=== PATIENT | male | born 1940 | race Caucasian/White ===

== ENCOUNTER 2024-04-24 08:57 | Outpatient (CLI) | payer MEDICARE, BC, SELFPAY ==
--- NOTE | ~2024-04-24 | PE_ITS ---
EXAMINATION: PET skull to mid thigh DATE: 04/24/2024 12:10 INDICATION: Solitary nodule of lung. TECHNIQUE: Blood glucose level was 97 mg/dL. 9.420 mCi of 18-fluorodeoxyglucose (18-FDG) was administ ered i.v. Low dose computed tomography (CT) images were acquired from the base of the brain to the pr oximal thighs for attenuation correction and anatomic localization. Automated exposure control was em ployed. Dose-length product (DLP) was 622 mGy-cm. Positron emission tomography (PET) images were acqu ired in the same distribution. COMPARISON: None FINDINGS: Head/neck: There are likely changes of right ocular lens replacement surgery. There is mild mucosal t hickening in the paranasal sinuses. There are no pathologically enlarged lymph nodes. Chest: There is moderate emphysema. There is a 3 mm nodule in right upper lobe. Calcified bilateral l leela nodules are consistent with old granulomatous disease. There is a 5 mm nodule in left upper lobe. There is a 4 mm nodule in left upper lobe. No pleural effusion. The heart size is normal. There are coronary artery calcifications. There are calcifications of the aortic valve. No pericardial effusion . There is a small sliding hiatal hernia. Abdomen/pelvis/proximal thighs: The liver, gallbladder, spleen, pancreas, adrenal glands, and right k idney are normal. There is a 2.1 cm cyst in left kidney. There is calcified atherosclerosis of the ao rta and many of the other arteries. 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 The pros shah is mildly enlarged. There is diverticulosis of the colon without evidence of diverticulitis. The appendix is normal. There are no dilated loops of bowel. There are no pathologically enlarged lymph nodes. There is no free intraperitoneal fluid. There is no osseous malignancy. IMPRESSION: 1. Small pulmonary nodules without increased activity, likely benign. Reviewed, dictated and finalized at location A.
[2024-04-24 09:40] LABS: Glucose Point of Care 97 mg/dl (65-105)
== END 2024-04-24 08:58 | disposition home or self-care (01) ==
LOC: ANHIMG 09:08
PROVIDERS: PCP Internal Medicine; Visit Provider Internal Medicine Pulmonary Disease
DX: R91.1 Solitary pulmonary nodule (principal); R91.8 Other nonspecific abnormal finding of lung field
CPT/HCPCS: 78815; A9552

== ENCOUNTER 2024-12-30 09:28 | Outpatient (CLI) | payer MEDICARE, BC, SELFPAY ==
--- NOTE | ~2024-12-30 | XR_ITS ---
XR abdomen/kub 1V Ordering provider: Jayant Patrick MD History: . GROSS HEMATURIA . Comparison: None. FINDINGS: BOWEL: Nonobstructive bowel gas pattern. ORGANOMEGALY: None. SIGNIFICANT PATHOLOGIC CALCIFICATIONS: None. The calcific shadow seen in the left side of the pelvis is most likely inflammatory. OTHER: No free air is seen under the diaphragm. Atherosclerotic changes. Degenerative spine. Bilateral hip osteoarthritic changes. IMPRESSION: NO ACUTE ABDOMINAL FINDINGS. Calcific shadow seen in the left side of the pelvis is most likely phlebolith. If still clinically grace spicious noncontrast CT is advised. Reviewed, dictated and finalized at location A. IMPRESSION: NO ACUTE ABDOMINAL FINDINGS. Calcific shadow seen in the left side of the pelvis is most likely phlebolith. If still clinically suspicious noncontrast CT is advised.
--- NOTE | ~2024-12-30 | CT_ITS ---
CT of the Abdomen and Pelvis: Indication: Hematuria Technique: 2.5 mm axial scans were obtained through the abdomen and pelvis prior to and following in travenous administration of 130 cc of Omnipaque 350. Dose reduction technique was used on this scan b y utilizing automated exposure control and iterative reconstruction technique. The dose-length produc t (DLP) was 527.89 mGy-cm. Findings: Scans through the lung bases are unremarkable. The liver, spleen, pancreas, gallbladder, adrenals and kidneys are within normal limits. There are ex tensive atherosclerotic calcifications of the aorta and iliac vessels, with mild aneurysmal dilatatio n of 3.1 cm of the infrarenal abdominal aorta. No lymphadenopathy. No bowel obstruction or bowel wall thickening. There is no evidence to suggest acute appendicitis. Images through the pelvis were performed. 3.6 x 2.9 cm probable enhancing soft tissue mass present in the posterior bladder just right of midline, suspicious for bladder carcinoma until proven otherwise . Prostate gland mildly enlarged. No ascites. Impression: 3.6 x 2.9 cm bladder mass, as above, highly suspicious for bladder carcinoma until proven otherwise. Cystoscopy recommended for further evaluation/tissue sampling. Extensive atherosclerotic disease of the aorta and iliac vessels, as noted above. Probable areas of h igh-grade stenosis of the bilateral iliac vessels. Reviewed, dictated and finalized at location M. Impression: 3.6 x 2.9 cm bladder mass, as above, highly suspicious for bladder carcinoma un til proven otherwise. Cystoscopy recommended for further evaluation/tissue samp ling. Extensive atherosclerotic disease of the aorta and iliac vessels, as noted abov e. Probable areas of high-grade stenosis of the bilateral iliac vessels.
--- OUTSIDE RECORDS SUMMARY | 2024-12-30 09:41 | XMS_ITS | Clinical Summary ---
Author Organization [facility] Address [address] [place] [address] Care Team Providers Care Brick Paving Checker Name Role Phone Michael Hanna MD Primary Care Provider [phone] Source Comments [facility],non-owned Affiliates and Associated Physician Practices is amultiple site organization consisting of ambulatory clinics and hospital sitesin [place], [place], [place] and [place]. This disclosure is being madepursuant to the Care Everywhere program and may not contain all information available regarding this patient. Last updated 18.[facility] Allergies No known active allergies Immunizations Immunization Administration Dates Next Due INFLUENZA VACCINE, HIGH-DOSE , QUADR. (FLUZONE HIGH-DOSE QUADRIVALENT; 65Y+), 0.7 ML (HD-IIV4) 05/22/2017 Social History Tobacco Use Types Packs/Day Years Used Date Smoking Tobacco: Never Assessed Sex and Gender Information Value Date Recorded Sex Assigned at Not on file Legal Sex Male 5:28 PM CDT Gender Identity Not on file Sexual Orientation Not on file Plan of Treatment Health Maintenance Due Date Last Done Comments DTAP/TDAP/TD VACCINES (1 - Tdap) 1958 PNEUMOCOCCAL VACCINE 50+ (1 of 1 - PCV) 1989 ZOSTER VACCINE (1 of 2) 1989 Respiratory Syncytial Virus (RSV) Vaccine Pt: or over 60 yrs (1 - 1-dose 75+ series) 2014 COVID-19 VACCINE ( - 2023-2 5 season) 2024 DEPRESSION SCREENING 08/20/2024 INFLUENZA VACCINE (Season Ended) 2025 05/22/20 17 HEPATITIS B VACCINE Aged Out No longe r eligible based on patient's age to complete this topic HIB VACCINE Aged Out No longer eligi ble based on patient's age to complete this topic HPV VACCINE Aged Out No longer eligi ble based on patient's age to complete this topic MENINGOCOCCAL (Group B) VACC INE SHARED DECISION-MAKING Aged Out No longer eligibl e based on patient's age to complete this topic MENINGOCOCCAL GROUPS A/C/Y/W VACCINE Aged Out No longer eligible b ased on patient's age to complete this topic Insurance MEDICARE [facility] MEDICARE Care Teams Brick Paving Checker Relationship Specialty Start Date End Date Michael Hanna MD [address] [place] [address] [address] [place] [address] PCP - General Internal Medicine 05/22/17
--- OUTSIDE RECORDS SUMMARY | 2024-12-30 09:41 | XMS_ITS | CONTINUITY OF CARE DOCUMENT ---
Author Name amna woo Address Unknown Organization [facility] Address [address] [place] [address] Phone [phone] Care Team Providers Care Financial Aid Director Name Role Phone Justin ELIZABETH, Keyona Unavailable PETER ELIZABETH, AMAYA Unavailable PETER ELIZABETH, AMAYA Unavailable [phone] PROBLEMS Condition Status Date Provider Notes Syncope active Sylwia Ibarra Hyperlipidemia active Sylwia Ibarra Hypertension active Sylwia Ibarra Chronic obstructive pulmonary disease, severe active 2 Sylwia Ibarra Cardiac murmur active Sylwia Ibarra INSURANCE PROVIDERS Payer name Policy type / Coverage type Aleksandra red libertarian ID [facility] [id number] 1 [place] Medicare [id number] TREATMENT PLAN Date Name Complete Echo
[2024-12-30 10:38] LABS: Estimated Glomerular Filt Rate 52
== END 2024-12-30 09:29 | disposition home or self-care (01) ==
PROVIDERS: PCP Internal Medicine; Visit Provider Urology
DX: N32.9 Bladder disorder, unspecified (principal); I70.0 Atherosclerosis of aorta
CPT/HCPCS: 74018; 74178; Q9967

== ENCOUNTER 2025-01-02 08:59 | Emergency (ER) | payer MEDICARE, BC, SELFPAY ==
--- NOTE | ~2025-01-02 | CT_ITS ---
EXAMINATION: CT abdomen pelvis w con DATE: 01/02/2025 11:20 INDICATION: Abdominal pain TECHNIQUE: Computed tomography (CT) of the abdomen and pelvis was performed with 100 mL Omnipaque-350 intravenous contrast. Automated exposure control and iterative reconstruction technique were employe d. The dose-length product was 218.46 mGy-cm. COMPARISON: 12/30/2024 FINDINGS: Mild emphysema the lower lungs. Heart size is normal. No pericardial or pleural effusion. Small slidi ng-type hiatal hernia. Liver, gallbladder, spleen and bilateral adrenal glands are normal. Couple sma ll dystrophic calcifications at the body the pancreas, likely sequela of chronic pancreatitis. Bilate ral renal cysts the largest on the left measuring 2.1 cm. Bladder is nearly decompressed with heterog eneous attenuation material within the bladder lumen along side a Mahoney catheter bulb. Prostatomegaly measuring 5.2 x 4.2 cm. There is moderate colonic diverticulosis with a descending and sigmoid colon predominance and without adjacent inflammatory change to suggest diverticulitis. Small bowel and ap pendix are normal. No free intraperitoneal gas or fluid. No pathologically enlarged abdominal or pelv ic lymphadenopathy. There is calcified atherosclerosis of the aorta and many of the other arteries. T here is moderate 50-70% stenosis at the origin of the left stenosis at the origin of the left renal a rtery. Mild stenosis at the celiac axis origin, at the proximal right renal artery and along the bila teral common, external and right internal iliac arteries. Severe stenosis at the origin of the left i nternal iliac artery. Mild to moderate lumbar spondylosis. IMPRESSION: 1. Heterogeneous attenuation material within the bladder lumen along side the Mahoney catheter bulb whi ch could represent residual clot related to reported recent bladder surgery. 2. Small sliding-type hiatal hernia. 3. Mild emphysema. 4. Prostatomegaly. 5. Diverticulosis. 6. 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 Reviewed, dictated and finalized at location A. IMPRESSION: 1. Heterogeneous attenuation material within the bladder lumen along side the F oley catheter bulb which could represent residual clot related to reported rece nt bladder surgery. 2. Small sliding-type hiatal hernia. 3. Mild emphysema. 4. Prostatomegaly. 5. Diverticulosis. 6. Atherosclerotic disease with moderate stenosis at the origin of the left jonh al artery and severe stenosis at the left internal iliac artery.
[2025-01-02 09:18] VITALS: BP 162/65; PULSE 82; RESP 16; TEMP 36.6; O2SAT 97
--- NOTE | 2025-01-02 09:28 | ED_ITS ---
HPI - General Adult General Chief complaint: Urogenital-Male Stated complaint: uro-male Time Seen by Provider: 01/02/25 09:10 History of Present Illness HPI narrative: Sathya Perez is a an 84-year-old male with past medical history bladder mass, hypertension, COPD and hypothyroidism. He presents today with complaints of not being able to urinate since last night. He states that 3 days ago he had a procedure done to look at his bladder mass and he states that he has had extreme pain with urinating passing blood clots since the procedure he went to an outside hospital yesterday had labs done and was discharged home and this morning he felt like he could not urinate anymore. Mahoney catheter was placed on arrival and 800 mils dark urine immediately came out patient reports of having some relief of his urgency abdominal discomfort with the catheter placement. Denies any fevers or chills. Related Data Allergies Allergy/AdvReac Type Severity Reaction Status Date / Time No Known Allergies Allergy Unverified 02/01/18 08:40 Review of Systems 2 Review of Systems: All systems reviewed & are unremarkable except as noted in HPI and below Exam 2 Narrative: GENERAL: Well-appearing, well-nourished, and in no acute distress. HEAD: Normocephalic, atraumatic. EYES: PERRLA and EOMI. ENT: Nares clear, no rhinorrhea or epistaxis. Mucous membranes moist. Oropharynx without tonsillar hypertrophy exudate or other lesions. NECK: Supple. No adenopathy or masses. No carotid bruits or JVD CHEST: Clear to auscultation. No respiratory distress. No wheezes rales or rhonchi HEART: Regular rate and rhythm. No murmur heard. Normal peripheral pulses. ABDOMEN: Soft, nontender, nondistended, normal active bowel sounds. EXTREMITIES: Normal range of motion. No edema. SKIN: Warm, dry, no rash. NEURO: No focal deficits. Alert and oriented x3. PSYCH: Normal mood and affect. Course Vital Signs Vital signs: Vital Signs Temperature 36.6 C 01/02/25 09:18 Pulse Rate 82 01/02/25 09:18 Respiratory Rate 16 01/02/25 09:18 Blood Pressure 162/65 H 01/02/25 09:18 Pulse Oximetry 97 01/02/25 09:18 Oxygen Delivery Room Air 01/02/25 09:18 Temperature 36.6 C 01/02/25 12:00 Pulse Rate 115 H 01/02/25 12:00 Respiratory Rate 20 01/02/25 12:00 Blood Pressure 132/88 01/02/25 12:00 Pulse Oximetry 100 01/02/25 12:00 Oxygen Delivery Room Air 01/02/25 09:18 Medical Decision Making MDM Narrative Medical decision making narrative: 84-year-old male who presents with reported urinary retention unable to urinate with some discomfort. He relates this to procedure that he had done 3 days ago he states he has had pain in his penis and with urination ever since then states he was passing blood and blood clots. Your concern for urinary obstruction, urinary tract infection, ureterolithiasis, active bleeding Plan to check labs and recheck to urology CBC-no leukocytosis hemodynamically stable hemoglobin 13.2 hematocrit 41.8 CMP-GFR 57 otherwise unremarkable UA-red, turbid 2+ protein trace ketones 3+ blood RBCs greater than 100 CT1. Heterogeneous attenuation material within the bladder lumen along side the Mahoney catheter bulb which could represent residual clot related to reported recent bladder surgery. consulted with Urology Dr. Patrick who recommends d/c pt with Mahoney and start Bactrim empirically and to have the pt call on Sunday for a follow up appt. Patient updated on results and information from Dr. Patrick is and updated on discharge plan he was agreeable with this plan will be approved righted with a leg bag and instructions to moved to a bedside drainage bag at bedtime Medical Records Medical records reviewed: Yes I reviewed the external patient's medical records. Vital Signs Vital Signs: Vital Signs Temperature 36.6 C 01/02/25 09:18 Pulse Rate 82 01/02/25 09:18 Respiratory Rate 16 01/02/25 09:18 Blood Pressure 162/65 H 01/02/25 09:18 Pulse Oximetry 97 01/02/25 09:18 Oxygen Delivery Room Air 01/02/25 09:18 Temperature 36.6 C 01/02/25 12:00 Pulse Rate 115 H 01/02/25 12:00 Respiratory Rate 20 01/02/25 12:00 Blood Pressure 132/88 01/02/25 12:00 Pulse Oximetry 100 01/02/25 12:00 Oxygen Delivery Room Air 01/02/25 09:18 vitals reviewed by me Lab Data Lab results reviewed: Yes I reviewed the patient's lab results. 01/02/25 10:04 01/02/25 10:04 Labs: Lab Results 01/02/25 Range/Units 10:04 WBC 8.2 (4.5-10.0) K/mm3 RBC 4.16 L (4.6-6.20) M/mm3 Hgb 13.2 L (14.0-18.0) g/dL Hct 41.8 L (42.0-52.0) % MCV 100.5 H (80-100) fl MCH 31.7 (26-34) pg MCHC 31.6 L (32-36) g/dl RDW 13.2 (11.5-14.5) % Plt Count 170 (150-375) k/mm3 MPV 10.7 H (7.4-10.4) fl Immature Gran % (Auto) 0.4 (0-0.5) % Neut % (Auto) 83.7 H (45.5-73.1) % Lymph % (Auto) 8.8 L (18.3-44.2) % [place] % (Auto) 5.3 (2.6-8.5) % Eos % (Auto) 1.2 (0-4.4) % Baso % (Auto) 0.6 (0.2-1.2) % Lymph # (Auto) 0.72 L (0.9-3.2) K/mm3 [place] # (Auto) 0.4 (0.1-0.6) K/mm3 Eos # (Auto) 0.1 (0-0.3) K/mm3 Baso # (Auto) 0.1 (0.0-0.1) K/mm3 Abs Immat Gran (auto) 0.03 (0.00-0.031) K/mm3 Absolute Neuts (auto) 6.8 H (1.3-6.7) K/mm3 Absolute Nucleated RBC 0.000 (0.0-0.012) K/mm3 Nucleated RBC % 0.0 (0.0-0.2) % Sodium 139 (137-145) mmol/L Potassium 4.5 (3.4-5.0) mmol/L Chloride 104 (98-107) mmol/L Carbon Dioxide 29 (22-30) mmol/L Anion Gap 6 (4-12) mmol/L BUN 19 (9-20) mg/dL Creatinine 1.21 (0.7-1.3) mg/dL Estim Creat Clear Calc 37 ml/min Estimated GFR 57 L (59 - ) Glucose 96 (65-110) mg/dL Calcium 9.0 (8.4-10.2) mg/dL Total Bilirubin 1.0 (0.2-1.3) mg/dL AST 34 (17-59) U/L ALT 18 (6-50) U/L Alkaline Phosphatase 107 (38-126) U/L Total Protein 7.0 (6.3-8.2) g/dL Albumin 4.0 (3.5-5.1) g/dL Urine Color Red H (Yellow) Urine Appearance Turbid H (Clear) Urine pH 6.5 (5.0-9.0) Ur Specific Freeman 1.015 (1.001-1.035) Urine Protein 2+ H (Negative) mg/dL Urine Glucose (UA) Negative (Negative) mg/dL Urine Ketones Trace H (Negative) mg/dL Ur Blood (Man) 3+ H (Negative) Urine Nitrate Negative (Negative) Urine Bilirubin Negative (Negative) Urine Urobilinogen 0.2 (<2.0) mg/dL Leukocyte Esterase Rfl Negative (Negative) LEXIE/UL Urine RBC >100 H (0-2) /hpf Urine WBC 0-5 (0-3) /hpf Ur Squamous Epith Cells None seen (Few) /hpf Urine Bacteria None seen /hpf Imaging Data Radiologist's impression: Impressions Abdomen/Pelvis CT 01/02/25 11:36 IMPRESSION: 1. Heterogeneous attenuation material within the bladder lumen along side the Mahoney catheter bulb which could represent residual clot related to reported recent bladder surgery. 2. Small sliding-type hiatal hernia. 3. Mild emphysema. 4. Prostatomegaly. 5. Diverticulosis. 6. 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 Discharge Plan Discharge Clinical Impression: Acute urinary retention Hematuria Qualifiers: Hematuria type: gross Qualified Code(s): R31.0 - Gross hematuria Patient Disposition: Home Condition: Stable Instructions: Antibiotic Form Additional Instructions: Continue to take the Bactrim twice daily Call Dr. Patrick Sunday for follow up Continue to keep the Mahoney catheter in until you follow up with Urology. Follow up with your PCP in 1 week Monitor your urine output, if you stop making urine or develop pressure abdominal pain then return to the ER Patient Language: Macedonian Prescriptions: New sulfamethoxazole-trimethoprim [Bactrim DS] 800-160 mg tablet 1 tablet PO Q12H Qty: 10 0RF Follow-up/Referrals: Hanna,Michael Mendes MD [Primary Care Provider] - Jayant Patrick MD [Physician] - 3 Days Time of Disposition: 12:38
--- OUTSIDE RECORDS SUMMARY | 2025-01-02 09:28 | XMS_ITS | Clinical Summary ---
Author Organization [facility] Address [address] [place] [address] Care Team Providers Care Vice President Of News Name Role Phone Michael Hanna MD Primary Care Provider [phone] Source Comments [facility],non-owned Affiliates and Associated Physician Practices is amultiple site organization consisting of ambulatory clinics and hospital sitesin [place], [place], [place] and [place]. This disclosure is being madepursuant to the Care Everywhere program and may not contain all information available regarding this patient. Last updated 18.[facility] Allergies No known active allergies Immunizations Immunization [...] age to complete this topic Insurance MEDICARE [facility] MEDICARE Care Teams Vice President Of News Relationship Specialty Start Date End Date Michael Hanna MD [address] [place] [address] [address] [place] [address] PCP - General Internal Medicine 05/22/17
--- OUTSIDE RECORDS SUMMARY | 2025-01-02 09:28 | XMS_ITS | CONTINUITY OF CARE DOCUMENT ---
Author Name amna woo Address Unknown Organization [facility] Address [address] [place] [address] Phone [phone] Care Team Providers Care Disaster Recovery Coordinator Name Role Phone Justin ELIZABETH, Keyona Unavailable [phone] PETER ELIZABETH, AMAYA Unavailable PETER ELIZABETH, AMAYA Unavailable [phone] PROBLEMS Condition Status Date Provider Notes Syncope active Sylwia Ibarra Hyperlipidemia active Sylwia Ibrara Hypertension active Sylwia Ibarra Chronic obstructive pulmonary disease, severe active 2 Sylwia Ibarra Cardiac murmur active Sylwia Ibarra INSURANCE PROVIDERS Payer name Policy type / Coverage type Aleksandra red libertarian ID [facility] [id number] 1 [place] MED[place] Medicare [id number] TREATMENT PLAN Date Name Complete Echo
--- OUTSIDE RECORDS SUMMARY | 2025-01-02 09:28 | XMS_ITS | Continuity of Care Document ---
Author Organization [facility] Address [address] [place] [address] Phone Care Team Providers Care Machine Shop Worker Name Role Phone Duke Tipton Unavailable Unavailable Procedures Procedure Date Office/outpatient Visit, [facility] Advance Directives Directive Yes / No Effective Date File Name No Information Encounters Encounter Description Practice Location Reason(s) For Visit Diagnoses Date Provider Providers Copied on Encounter Office/outpat ient Visit, [facility], [address], [place], [place], [id number], [place] tel:[phone] [facility] No Information [address] , [address], [place], [address], [place]. tel:[phone] Family History Family Member Type Diagnosis Age At Onset No Information Payers Payer name Insurance type Covered green party ID Authoriza tion(s) No Information Social History Type Description Quantity Date Captured Comments Sex Male Smoking Status No Information Chief Complaint And Reason For Visit No Information Reason For Referral Reason For Referral No Information History Of Present Illness Encounter Date Complaint History Of Prese nt Illness No Information Functional Status Date Functional Assessmen t No Information Instructions Date Instruction Additional Infor mation No Information Assessments Type Assessment Date No Information Patient Care Teams Name Effective Dates (start - stop) Status Members No Information
[2025-01-02 10:23] LABS: Basophils Absolute Auto 0.1 K/mm3 (0.0-0.1); Basophils Percent Auto 0.6 % (0.2-1.2); Eosinophils Absolute Auto 0.1 K/mm3 (0-0.3); Eosinophils Percent Auto 1.2 % (0-4.4); Hematocrit 41.8 % (42.0-52.0); Hemoglobin 13.2 g/dL (14.0-18.0); Immature Granulocyte Absolute 0.03 K/mm3 (0.00-0.031); Immature Granulocyte Percent A 0.4 % (0-0.5); Lymphocytes Absolute Auto 0.72 K/mm3 (0.9-3.2); Lymphocytes Percent Auto 8.8 % (18.3-44.2); Mean Corpuscular HGB Conc 31.6 g/dl (32-36); Mean Corpuscular Hemoglobin 31.7 pg (26-34); Mean Corpuscular Volume 100.5 fl (80-100); Mean Platelet Volume 10.7 fl (7.4-10.4); Monocytes Absolute Auto 0.4 K/mm3 (0.1-0.6); Monocytes Percent Auto 5.3 % (2.6-8.5); Neutrophils Absolute Auto 6.8 K/mm3 (1.3-6.7); Neutrophils Percent Auto 83.7 % (45.5-73.1); Platelet Count Result 170 k/mm3 (150-375); Red Blood Count 4.16 M/mm3 (4.6-6.20); Red Cell Distribution Width 13.2 % (11.5-14.5); White Blood Count 8.2 K/mm3 (4.5-10.0)
[2025-01-02 10:32] LABS: Appearance Urine Turbid (Clear)
[2025-01-02 10:33] LABS: Color Urine Red (Yellow); Glucose Urine UA Negative (Negative); Ketones Urine Trace mg/dL (Negative); Protein Urine 2+ mg/dL (Negative); Specific Grav Ur 1.015 (1.001-1.035); pH Urine 6.5 (5.0-9.0)
[2025-01-02 10:34] LABS: Add Urine Microscopic? YES; Bilirubin Urine Negative (Negative); Blood Urine 3+ (Negative); Leukocyte Esterase Ur Negative LEU/UL (Negative); Nitrate Urine Negative (Negative); Urobilinogen Urine 0.2 mg/dL (<2.0)
[2025-01-02 10:35] LABS: Bacteria Urine None seen /hpf; RBC Urine >100 /hpf (0-2); Squamous Epithelial Cell Urine None Seen /hpf (Few); WBC Urine 0-5 /hpf (0-3)
[2025-01-02 11:01] VITALS: BP 133/98; PULSE 128; RESP 22; TEMP 36.6; O2SAT 100
[2025-01-02 11:02] LABS: Alanine Aminotransferase 18 U/L (6-50); Alkaline Phosphatase 107 U/L (38-126); Anion Gap 6 mmol/L (4-12); Aspartate Amino Transferase 34 U/L (17-59); Blood Urea Nitrogen 19 mg/dL (9-20); Carbon Dioxide 29 mmol/L (22-30); Chloride 104 mmol/L (98-107); Estimated CRCL calculation 37 ml/min; Estimated Glomerular Filt Rate 57; Glucose 96 mg/dL (65-110); Potassium 4.5 mmol/L (3.4-5.0); Sodium 139 mmol/L (137-145)
[2025-01-02 11:31] VITALS: PULSE 112; RESP 22
[2025-01-02] MEDS: IPRATROPIUM 0.5 MG/ALBUTEROL SULFATE 2.5 MG AMPUL.NEB 3 ML INHALATION (11:31)
[2025-01-02 11:38] VITALS: PULSE 113; RESP 20
[2025-01-02 12:00] VITALS: BP 132/88; PULSE 115; RESP 20; TEMP 36.6; O2SAT 100
[2025-01-02 13:00] VITALS: BP 138/80; PULSE 110; RESP 26; TEMP 36.6; O2SAT 95
[2025-01-02] MEDS: SULFAMETHOXAZOLE/TRIMETHOPRIM 800/160 MG DS TABLET 1 TAB PO (13:03)
--- NOTE | 2025-01-02 13:53 | PC.NURSE ---
Mahoney cath irrigated after leg beg applied because no urine drained into bag. 120ml sterile water inserted and would not aspirate out. Balloon deflate and advance and cath began to flow again
== END 2025-01-02 13:56 | disposition home or self-care (01) ==
PROVIDERS: Emergency Provider Nurse Practitioner Family; PCP Internal Medicine
DX: R33.9 Retention of urine, unspecified (principal); R31.0 Gross hematuria; I10 Essential (primary) hypertension; J44.9 Chronic obstructive pulmonary disease, unspecified; E03.9 Hypothyroidism, unspecified
CPT/HCPCS: 36415; 51702; 74177; 80053; 81001; 85025; 94640; 96360; 99283; 99284; A9270; J7030; Q9967

== ENCOUNTER 2025-01-02 17:30 | Emergency (ER) | payer MEDICARE, BC, SELFPAY ==
--- OUTSIDE RECORDS SUMMARY | 2025-01-02 17:33 | XMS_ITS | Clinical Summary ---
Author Organization [facility] Address [address] [place] [address] Care Team Providers Care Pipe Changer Name Role Phone Michael Hanna MD Primary Care Provider [phone] Source Comments [facility],non-owned Affiliates and Associated Physician Practices is amultiple site organization consisting of ambulatory clinics and hospital sitesin [place], [place], [place] and [place]. This disclosure is being madepursuant to the Care Everywhere program and may not contain all information available regarding this patient. Last updated 18.[facility] Allergies No known active allergies Immunizations Immunization [...] age to complete this topic Insurance MEDICARE [facility] MEDICARE Care Teams Pipe Changer Relationship Specialty Start Date End Date Michael Hanna MD [address] [place] [address] [address] [place] [address] PCP - General Internal Medicine 05/22/17
--- OUTSIDE RECORDS SUMMARY | 2025-01-02 17:33 | XMS_ITS | CONTINUITY OF CARE DOCUMENT ---
Author Name amna woo Address Unknown Organization [facility] Address [address] [place] [address] Phone [phone] Care Team Providers Care Silk Soaker Name Role Phone Justin ELIZABETH, Keyona Unavailable PETER ELIZABETH, AMAYA Unavailable PETER ELIZABETH, AMAYA Unavailable PROBLEMS Condition Status Date Provider Notes Syncope active Syliwa Ibarra Hyperlipidemia active Sylwia Ibarra Hypertension active Sylwia Ibarra Chronic obstructive pulmonary disease, severe active 2 Sylwia Ibarra Cardiac murmur active Sylwia Ibarra INSURANCE PROVIDERS Payer name Policy type / Coverage type Aleksandra red republican ID [facility] [id number] 1 [place] MED[place] Medicare [id number] TREATMENT PLAN Date Name Complete Echo
--- OUTSIDE RECORDS SUMMARY | 2025-01-02 17:34 | XMS_ITS | Continuity of Care Document ---
Author Organization [facility] Address [address] [place] [address] Phone Care Team Providers Care Manager R D Name Role Phone Duke Tipton Unavailable Unavailable Procedures Procedure Date Office/outpatient Visit, [facility] Advance Directives Directive Yes / No Effective Date File Name No Information Encounters Encounter Description Practice Location Reason(s) For Visit Diagnoses Date Provider Providers Copied on Encounter Office/outpat ient Visit, [facility], [address], [place], [place], [address], [place] tel:[phone] [facility] No Information [address] [facility] , [address], [place], [address], [place]. tel:[phone] Family History Family Member Type Diagnosis Age At Onset No Information Payers Payer name Insurance type Covered alliance party ID Authoriza tion(s) No Information Social [...]
[2025-01-02 17:41] VITALS: BP 129/66; PULSE 123; RESP 16; TEMP 36.7; O2SAT 96
--- NOTE | 2025-01-02 17:48 | ED_ITS ---
HPI - General Adult General Chief complaint: Urogenital-Male <Kelsey Butler, POWER LINE INSTALLER AND REPAIRER - Last Filed: 01/04/25 12:54> Stated complaint: Bleeding Urine -Dc'd earlier <Kelsey Stewart December, POWER LINE INSTALLER AND REPAIRER - Last Filed: 01/04/25 12:54> Time Seen by Provider: 01/02/25 17:49 <Kelsey Stewart December, POWER LINE INSTALLER AND REPAIRER - Last Filed: 01/04/25 12:54> Focused HPI: Sathya Perez is an 84 y/o male who was here earlier today for similar complaints. He had a cystoscopy done 2 days ago and has had some pain and hematuria since then and he came in earlier because he had urinary retention, a Mahoney was placed and 800mls of dark / bloody urine out. Urology consulted and recommended d/c with Mahoney and follow up Sunday Patient returns with complaints of increased penile and abdominal pain / still having hematuria GENERAL: no acute distress. HEAD: Normocephalic, atraumatic. CHEST: No respiratory distress. HEART: tachyycardic 123 in triage NEURO: Alert and oriented x3. Patient screened in triage and initial orders placed. Additional care and disposition to be based upon diagnostic testing and treatment. <Kelsey Stewart December, POWER LINE INSTALLER AND REPAIRER - Last Filed: 01/04/25 12:54> History of Present Illness HPI narrative: Agree with HPI. Patient has pulling and tugging that hurts the tip of his penis. He is not leaking around the catheter. He continues to feel his Mahoney bag without clots. No blood thinners. <Noah Ibarra MD - Last Filed: 01/02/25 22:09> Related Data Allergies/adverse reactions: Allergies Allergy/AdvReac Type Severity Reaction Status Date / Time No Known Allergies Allergy Unverified 02/01/18 08:40 <Kelsey Butler, POWER LINE INSTALLER AND REPAIRER - Last Filed: 01/04/25 12:54> Review of Systems 2 Constitutional: Constitutional: Reports no additional constitutional complaints <Noah Ibarra MD - Last Filed: 01/02/25 22:09> Gastrointestinal: Gastrointestinal: Reports no additional gastrointestinal complaints <Noah Ibarra MD - Last Filed: 01/02/25 22:09> Genitourinary: Genitourinary: Reports no additional male genitourinary complaints <Noah Ibarra MD - Last Filed: 01/02/25 22:09> PMFSH Past Medical History Medical History: Medical History (Updated 01/03/25 @ 00:00 by Background Daemon) Bladder mass <Kelsey Butler APRN - Last Filed: 01/04/25 12:54> Exam 2 Narrative: GENERAL: Well-appearing, well-nourished, and in no acute distress. HEAD: Normocephalic, atraumatic. ENT: Mucous membranes moist. CHEST: Clear to auscultation. No respiratory distress. HEART: Tachycardic and regular. Normal peripheral pulses. ABDOMEN: Soft, nontender, nondistended. Cranberry juice colored urine in Mahoney bag without clots. EXTREMITIES: Normal range of motion. No edema. SKIN: Warm, dry, no rash. NEURO: Alert and oriented x3. PSYCH: Normal mood and affect. <Noah Ibarra MD - Last Filed: 01/02/25 22:09> Course Course Emergency Course: HR improving with IVF. HG stable. Mahoney readjusted. D/c. <Noah Ibarra MD - Last Filed: 01/02/25 22:09> Vital Signs Vital signs: Vital Signs Temperature 36.7 C 01/02/25 17:41 Pulse Rate 123 H 01/02/25 17:41 Respiratory Rate 16 01/02/25 17:41 Blood Pressure 129/66 01/02/25 17:41 Pulse Oximetry 96 01/02/25 17:41 Oxygen Delivery Room Air 01/02/25 17:41 Temperature 36.7 C 01/02/25 17:41 Pulse Rate 103 H 01/02/25 22:32 Respiratory Rate 16 01/02/25 22:32 Blood Pressure 127/60 01/02/25 22:32 Pulse Oximetry 97 01/02/25 22:32 Oxygen Delivery Room Air 01/02/25 17:41 <Kelsey Butler APRN - Last Filed: 01/04/25 12:54> Vital Signs Temperature 36.7 C 01/02/25 17:41 Pulse Rate 123 H 01/02/25 17:41 Respiratory Rate 16 01/02/25 17:41 Blood Pressure 129/66 01/02/25 17:41 Pulse Oximetry 96 01/02/25 17:41 Oxygen Delivery Room Air 01/02/25 17:41 Temperature 36.7 C 01/02/25 17:41 Pulse Rate 103 H 01/02/25 22:32 Respiratory Rate 16 01/02/25 22:32 Blood Pressure 127/60 01/02/25 22:32 Pulse Oximetry 97 01/02/25 22:32 Oxygen Delivery Room Air 01/02/25 17:41 <Noah Ibarra MD - Last Filed: 01/02/25 22:09> Medical Decision Making Vital Signs Vital Signs: Vital Signs Temperature 36.7 C 01/02/25 17:41 Pulse Rate 123 H 01/02/25 17:41 Respiratory Rate 16 01/02/25 17:41 Blood Pressure 129/66 01/02/25 17:41 Pulse Oximetry 96 01/02/25 17:41 Oxygen Delivery Room Air 01/02/25 17:41 Temperature 36.7 C 01/02/25 17:41 Pulse Rate 103 H 01/02/25 22:32 Respiratory Rate 16 01/02/25 22:32 Blood Pressure 127/60 01/02/25 22:32 Pulse Oximetry 97 01/02/25 22:32 Oxygen Delivery Room Air 01/02/25 17:41 <Kelsey Butler, POWER LINE INSTALLER AND REPAIRER - Last Filed: 01/04/25 12:54> Vital Signs Temperature 36.7 C 01/02/25 17:41 Pulse Rate 123 H 01/02/25 17:41 Respiratory Rate 16 01/02/25 17:41 Blood Pressure 129/66 01/02/25 17:41 Pulse Oximetry 96 01/02/25 17:41 Oxygen Delivery Room Air 01/02/25 17:41 Temperature 36.7 C 01/02/25 17:41 Pulse Rate 103 H 01/02/25 22:32 Respiratory Rate 16 01/02/25 22:32 Blood Pressure 127/60 01/02/25 22:32 Pulse Oximetry 97 01/02/25 22:32 Oxygen Delivery Room Air 01/02/25 17:41 <Noah Ibarra MD - Last Filed: 01/02/25 22:09> Lab Data Result diagrams: 01/02/25 19:44 <Kelsey Butler POWER LINE INSTALLER AND REPAIRER - Last Filed: 01/04/25 12:54> Labs: Lab Results 01/02/25 Range/Units 19:44 WBC 12.5 H (4.5-10.0) K/mm3 RBC 4.04 L (4.6-6.20) M/mm3 Hgb 12.8 L (14.0-18.0) g/dL Hct 40.5 L (42.0-52.0) % MCV 100.2 H (80-100) fl MCH 31.7 (26-34) pg MCHC 31.6 L (32-36) g/dl RDW 13.5 (11.5-14.5) % Plt Count 179 (150-375) k/mm3 MPV 10.4 (7.4-10.4) fl Immature Gran % (Auto) Not Reportable Neut % (Auto) Not Reportable Lymph % (Auto) Not Reportable [place] % (Auto) Not Reportable Eos % (Auto) Not Reportable Baso % (Auto) Not Reportable Lymph # (Auto) Not Reportable [place] # (Auto) Not Reportable Eos # (Auto) Not Reportable Baso # (Auto) Not Reportable Abs Immat Gran (auto) Not Reportable Absolute Neuts (auto) Not Reportable Absolute Nucleated RBC Not Reportable Nucleated RBC % Not Reportable <Kelsey Butler, POWER LINE INSTALLER AND REPAIRER - Last Filed: 01/04/25 12:54> Lab Results 01/02/25 Range/Units 19:44 WBC 12.5 H (4.5-10.0) K/mm3 RBC 4.04 L (4.6-6.20) M/mm3 Hgb 12.8 L (14.0-18.0) g/dL Hct 40.5 L (42.0-52.0) % MCV 100.2 H (80-100) fl MCH 31.7 (26-34) pg MCHC 31.6 L (32-36) g/dl RDW 13.5 (11.5-14.5) % Plt Count 179 (150-375) k/mm3 MPV 10.4 (7.4-10.4) fl Immature Gran % (Auto) Not Reportable Neut % (Auto) Not Reportable Lymph % (Auto) Not Reportable [place] % (Auto) Not Reportable Eos % (Auto) Not Reportable Baso % (Auto) Not Reportable Lymph # (Auto) Not Reportable [place] # (Auto) Not Reportable Eos # (Auto) Not Reportable Baso # (Auto) Not Reportable Abs Immat Gran (auto) Not Reportable Absolute Neuts (auto) Not Reportable Absolute Nucleated RBC Not Reportable Nucleated RBC % Not Reportable <Noah Ibarra MD - Last Filed: 01/02/25 22:09> Discharge Plan Discharge Clinical Impression: Mahoney catheter problem <Kelsey Stewart December, POWER LINE INSTALLER AND REPAIRER - Last Filed: 01/04/25 12:54> Patient Disposition: Home <Kelsey Stewart December,N - Last Filed: 01/04/25 12:54> Condition: Stable <Kelsey Stewart December, - Last Filed: 01/04/25 12:54> Instructions: Mahoney Catheter Placement and Care (ED) <Kelsey Stewart December, - Last Filed: 01/04/25 12:54> Additional Instructions: Your catheter was readjusted so that would be last pulling and tugging. Follow-up with urology. <Kelsey Stewart December, POWER LINE INSTALLER AND REPAIRER - Last Filed: 01/04/25 12:54> Patient Language: Hungarian <Kelsey Stewart December, - Last Filed: 01/04/25 12:54> Prescriptions: No Action sulfamethoxazole-trimethoprim [Bactrim DS] 800-160 mg tablet 1 tablet PO Q12H Qty: 10 0RF <Kelsey Stewart December, - Last Filed: 01/04/25 12:54> Follow-up/Referrals: Hanna,Michael Mendes MD [Primary Care Provider] - Jayant Patrick MD [Physician] - 1 Week <Kelsey Stewart December, POWER LINE INSTALLER AND REPAIRER - Last Filed: 01/04/25 12:54>
--- NOTE | 2025-01-02 19:31 | PC.NURSE ---
Pt presents to ED c/o blood in urine. Per pt was just discharged with a Mahoney catheter in place due to urine retention. Pt states he has intermitten 10/10 pain in his penis. Mahoney catheter appears to be draining and approx. 50ml output. Pt tachycardiac on monitor with HR 110-120, placed on cont. cardiac and pulse oximeter.
[2025-01-02 19:50] LABS: Hematocrit 40.5 % (42.0-52.0); Hemoglobin 12.8 g/dL (14.0-18.0); Mean Corpuscular HGB Conc 31.6 g/dl (32-36); Mean Corpuscular Hemoglobin 31.7 pg (26-34); Mean Corpuscular Volume 100.2 fl (80-100); Mean Platelet Volume 10.4 fl (7.4-10.4); Platelet Count Result 179 k/mm3 (150-375); Red Blood Count 4.04 M/mm3 (4.6-6.20); Red Cell Distribution Width 13.5 % (11.5-14.5); White Blood Count 12.5 K/mm3 (4.5-10.0)
--- OUTSIDE RECORDS SUMMARY | 2025-01-02 19:54 | XMS_ITS | CONTINUITY OF CARE DOCUMENT ---
Author Name amna woo Address Unknown Organization [facility] Address [address] [place] [address] Phone [phone] Care Team Providers Care Taker Down Name Role Phone Justin ELIZABETH, Keyona Unavailable PETER ELIZABETH, AMAYA Unavailable PETER ELIZABETH, AMAYA Unavailable PROBLEMS Condition Status Date Provider Notes Syncope active Sylwia Ibarra Hyperlipidemia active Sylwia Ibarra Hypertension active Sylwia Ibarra Chronic obstructive pulmonary disease, severe active 2 Sylwia Ibarra Cardiac murmur active Sylwia Ibarra INSURANCE PROVIDERS Payer name Policy type / Coverage type Aleksandra red constitution party ID [facility] [id number] 1 [place] MED[place] Medicare [id number] TREATMENT PLAN Date Name Complete Echo
--- OUTSIDE RECORDS SUMMARY | 2025-01-02 19:54 | XMS_ITS | Clinical Summary ---
Author Organization [facility] [employer] Address [address] [place] [address] Care Team Providers Care Machine Setter Automatic Name Role Phone Michael Hanna MD Primary Care Provider [phone] Source Comments [facility] [employer],non-owned Affiliates and Associated Physician Practices is amultiple site organization consisting of ambulatory clinics and hospital sitesin [place], [place], [place] and [place]. This disclosure is being madepursuant to the Care Everywhere program and may not contain all information available regarding this patient. Last updated 18.[facility] [employer] Allergies No known active allergies Immunizations Immunization [...] age to complete this topic Insurance MEDICARE [facility] MEDICARE Care Teams Machine Setter Automatic Relationship Specialty Start Date End Date Michael Hanna MD [address] [place] [address] [address] [place] [address] PCP - General Internal Medicine 05/22/17
--- OUTSIDE RECORDS SUMMARY | 2025-01-02 19:54 | XMS_ITS | Continuity of Care Document ---
Author Organization [facility] Address [address] [place] [address] Phone Care Team Providers Care Nursing Resident Name Role Phone Duke Tipton Unavailable Unavailable Procedures Procedure Date Office/outpatient Visit, [facility] Advance Directives Directive Yes / No Effective Date File Name No Information Encounters Encounter Description Practice Location Reason(s) For Visit Diagnoses Date Provider Providers Copied on Encounter Office/outpat ient Visit, [facility], [address], [place], [place], [address], [place] tel:[phone] SEC [facility] No Information [address] , [address], [place], [address], [place]. tel:[phone] Family History Family Member Type Diagnosis Age At Onset No Information Payers Payer name Insurance type Covered democrat ID Authoriza tion(s) No Information Social History [...]
--- NOTE | 2025-01-02 20:57 | PC.NURSE ---
STAT-LOCK repositioned.
[2025-01-02] MEDS: SODIUM CHLORIDE 0.9% IV 1,000 ML 999 ML IV CONT (21:05)
[2025-01-02 22:32] VITALS: BP 127/60; PULSE 103; RESP 16; O2SAT 97
== END 2025-01-02 22:30 | disposition home or self-care (01) ==
PROVIDERS: Nurse Practitioner Family; Emergency Provider Emergency Medicine; PCP Internal Medicine
DX: T83.091A Other mechanical complication of indwelling urethral catheter, initial encounter (principal)
CPT/HCPCS: 36415; 85025; 96360; 99283; J7030

== ENCOUNTER 2025-01-03 11:48 | Emergency (ER) | payer MEDICARE, BC, SELFPAY ==
[2025-01-03 11:49] VITALS: BP 114/53; PULSE 119; RESP 18; TEMP 36.5; O2SAT 94
--- OUTSIDE RECORDS SUMMARY | 2025-01-03 11:50 | XMS_ITS | CONTINUITY OF CARE DOCUMENT ---
Author Name amna woo Address Unknown Organization [facility] [place] [facility] Address [address] [place] [address] Phone [phone] Care Team Providers Care Vacuum Caster Name Role Phone Justin ELIZABETH, Keyona Unavailable PETER ELIZABETH, AMAYA Unavailable PETER ELIZABETH, AMAYA Unavailable [phone] PROBLEMS Condition Status Date Provider Notes Syncope active Sylwia Ibarra Hyperlipidemia active Sylwia Ibarra Hypertension active Sylwia Ibarra Chronic obstructive pulmonary disease, severe active 2 Sylwia Ibarra Cardiac murmur active Sylwia Ibarra INSURANCE PROVIDERS Payer name Policy type / Coverage type Aleksandra red alliance party ID [facility] [id number] 1 [place] MED[place] Medicare [id number] TREATMENT PLAN Date Name Complete Echo
--- OUTSIDE RECORDS SUMMARY | 2025-01-03 11:50 | XMS_ITS | Continuity of Care Document ---
Author Organization [facility] Address [address] [place] [address] Phone Care Team Providers Care Lead Mason Tender Name Role Phone Duke Tipton Unavailable Unavailable Procedures Procedure Date Office/outpatient Visit, [facility] Advance Directives Directive Yes / No Effective Date File Name No Information Encounters Encounter Description Practice Location Reason(s) For Visit Diagnoses Date Provider Providers Copied on Encounter Office/outpat ient Visit, [facility], [address], [place], [place], [address], [place] tel:[phone] [facility] No Information [address] , [address], [place], [address], [place]. tel:[phone] Family History Family Member Type Diagnosis Age [...]
--- OUTSIDE RECORDS SUMMARY | 2025-01-03 11:50 | XMS_ITS | Clinical Summary ---
Author Organization [facility] Address [address] [place] [address] Care Team Providers Care Manager Brand Name Role Phone Michael Hanna MD Primary Care Provider [phone] Source Comments [facility],non-owned Affiliates and Associated Physician Practices is amultiple site organization consisting of ambulatory clinics and hospital sitesin [place], [place], [place] and [place]. This disclosure is being madepursuant to the Care Everywhere program and may not contain all information available regarding this patient. Last updated 18.[facility] Allergies No known active allergies Immunizations Immunization [...] age to complete this topic Insurance MEDICARE [facility] MEDICARE Care Teams Manager Brand Relationship Specialty Start Date End Date Michael Hanna MD [address] [place] [address] [address] [place] [address] PCP - General Internal Medicine 05/22/17
--- NOTE | 2025-01-03 12:41 | PC.NURSE ---
This RN removed existing whelan leg bag due to pt reports it is leaking, replaced whelan bag and has patency noted. Pt states this resolved this issue and he is declining to see an EDP. Pt ambulated out in no distress.
--- OUTSIDE RECORDS SUMMARY | 2025-01-03 12:49 | XMS_ITS | Continuity of Care Document ---
Author Organization [facility] Address [address] [place] [address] Phone Care Team Providers Care Predictive Maintenance Technician Name Role Phone Duke Tipton Unavailable Unavailable Procedures Procedure Date Office/outpatient Visit, [facility] Advance Directives Directive Yes / No Effective Date File Name No Information Encounters Encounter Description Practice Location Reason(s) For Visit Diagnoses Date Provider Providers Copied on Encounter Office/outpat ient Visit, [facility], [address], [place], [place], [address], [place] tel:[phone] SEC [facility] No Information [address] , [address], [place], [address], [place]. tel:[phone] Family History Family Member Type Diagnosis Age [...]
--- OUTSIDE RECORDS SUMMARY | 2025-01-03 12:49 | XMS_ITS | Clinical Summary ---
Author Organization [facility] Address [address] [place] [address] Care Team Providers Care Auctioneer Automobile Name Role Phone Michael Hanna MD Primary Care Provider [phone] Source Comments [facility],non-owned Affiliates and Associated Physician Practices is amultiple site organization consisting of ambulatory clinics and hospital sitesin [place], [place], [place] and [place]. This disclosure is being madepursuant to the Care Everywhere program and may not contain all information available regarding this patient. Last updated 18.[facility] Allergies No known active allergies Immunizations Immunization [...] to complete this topic Insurance MEDICARE [facility] MEDICARE Care Teams Auctioneer Automobile Relationship Specialty Start Date End Date Michael Hanna MD [address] [place] [address] [address] [place] [address] PCP - General Internal Medicine 05/22/17
--- OUTSIDE RECORDS SUMMARY | 2025-01-03 12:49 | XMS_ITS | CONTINUITY OF CARE DOCUMENT ---
Author Name amna woo Address Unknown Organization [facility] Address [address] [place] [address] Phone [phone] Care Team Providers Care Pottery Striper Name Role Phone Justin ELIZABETH, Keyona Unavailable [phone] PETER ELIZABETH, AMAYA Unavailable [phone] PETER ELIZABETH, AMAYA Unavailable [phone] PROBLEMS Condition Status Date Provider Notes Syncope active Sylwia Ibarra Hyperlipidemia active Sylwia Ibarra Hypertension active Sylwia Ibarra Chronic obstructive pulmonary disease, severe active 2 Sylwia Ibarra Cardiac murmur active Sylwia Ibarra INSURANCE PROVIDERS Payer name Policy type / Coverage type Aleksandra red democrat ID [facility] [id number] 1 [place] MED[place] Medicare [id number] TREATMENT PLAN Date Name Complete Echo
== END 2025-01-03 13:02 | disposition left against medical advice (07) ==
LOC: ANHED 12:47
PROVIDERS: Emergency Provider Student in an Organized Health Care Education/Training Program; PCP Internal Medicine
DX: T83.031A Leakage of indwelling urethral catheter, initial encounter (principal)
CPT/HCPCS: 99199

== ENCOUNTER 2025-01-06 11:24 | Emergency (ER) | payer MEDICARE, BC, SELFPAY ==
--- OUTSIDE RECORDS SUMMARY | 2025-01-06 11:26 | XMS_ITS | CONTINUITY OF CARE DOCUMENT ---
Author Name amna woo Address Unknown Organization [facility] Address [address] [place] [address] Phone [phone] Care Team Providers Care Sharepoint Admin Name Role Phone Justin ELIZABETH, Keyona Unavailable PETER ELIZABETH, AMAYA Unavailable [phone] PETER ELIZABETH, AMAYA Unavailable [phone] PROBLEMS Condition Status Date Provider Notes Syncope active Sylwia Ibarra Hyperlipidemia active Sylwia Ibarra Hypertension active Sylwia Ibarra Chronic obstructive pulmonary disease, severe active 2 Sylwia Ibarra Cardiac murmur active Sylwia Ibarra INSURANCE PROVIDERS Payer name Policy type / Coverage type Aleksandra red green party ID [facility] [id number] 1 [place] MED[place] Medicare [id number] TREATMENT PLAN Date Name Complete Echo
--- OUTSIDE RECORDS SUMMARY | 2025-01-06 11:26 | XMS_ITS | Clinical Summary ---
Author Organization [facility] Address [address] [place] [address] Care Team Providers Care V Belt Curer Name Role Phone Michael Hanna MD Primary Care Provider [phone] Source Comments [facility],non-owned Affiliates and Associated Physician Practices is amultiple site organization consisting of ambulatory clinics and hospital sitesin [place], [place], [place] and [place]. This disclosure is being madepursuant to the Care Everywhere program and may not contain all information available regarding this patient. Last updated 18.[facility] Allergies No known active allergies Immunizations Immunization [...] age to complete this topic Insurance MEDICARE [facility] MEDICARE Care Teams V Belt Curer Relationship Specialty Start Date End Date Michael Hanna MD [address] [place] [address] [address] [place] [address] PCP - General Internal Medicine 05/22/17
--- OUTSIDE RECORDS SUMMARY | 2025-01-06 11:26 | XMS_ITS | Continuity of Care Document ---
Author Organization [facility] Address [address] [place] [address] Phone Care Team Providers Care Supply And Distribution Manager Name Role Phone Duke Tipton Unavailable Unavailable Procedures Procedure Date Office/outpatient Visit, [facility] Advance Directives Directive Yes / No Effective Date File Name No Information Encounters Encounter Description Practice Location Reason(s) For Visit Diagnoses Date Provider Providers Copied on Encounter Office/outpat ient Visit, [facility], [address], [place], [place], [id number], [place] tel:[phone] SEC [facility] No Information [address] [facility] , [address], [place], [address], [place]. tel:[phone] Family History Family Member Type Diagnosis Age At Onset No Information Payers Payer name Insurance type Covered republican ID Authoriza tion(s) No Information Social History [...]
[2025-01-06 11:27] VITALS: BP 126/63; PULSE 104; RESP 18; TEMP 36.6; O2SAT 97
[2025-01-06 11:38] VITALS: BP 135/70; O2SAT 96
[2025-01-06 11:46] VITALS: BP 115/60; PULSE 95; RESP 18; O2SAT 97
--- OUTSIDE RECORDS SUMMARY | 2025-01-06 12:09 | XMS_ITS | Continuity of Care Document ---
Author Organization [facility] Address [address] [place] [address] Phone Care Team Providers Care Religious Leader Name Role Phone Duke Tipton Unavailable Unavailable Procedures Procedure Date Office/outpatient Visit, [facility] Advance Directives Directive Yes / No Effective Date File Name No Information Encounters Encounter Description Practice Location Reason(s) For Visit Diagnoses Date Provider Providers Copied on Encounter Office/outpat ient Visit, [facility], [address], [place], [place], [id number], [place] tel:[phone] SEC [facility] No Information [address] [facility] , [address], [place], [address], [place]. tel:[phone] Family History Family Member Type Diagnosis Age [...]
--- OUTSIDE RECORDS SUMMARY | 2025-01-06 12:10 | XMS_ITS | CONTINUITY OF CARE DOCUMENT ---
Author Name amna woo Address Unknown Organization [facility] Address [address] [place] [address] Phone [phone] Care Team Providers Care Heavy Duty Truck Mechanic Name Role Phone Justin ELIZABETH, Keyona Unavailable PETER ELIZABETH, AMAYA Unavailable PETER ELIZABETH, AMAYA Unavailable [phone] PROBLEMS Condition Status Date Provider Notes Syncope active Sylwia Ibarra Hyperlipidemia active Sylwia Ibarra Hypertension active Sylwia Ibarra Chronic obstructive pulmonary disease, severe active 2 Sylwia Ibarra Cardiac murmur active Sylwia Ibarra INSURANCE PROVIDERS Payer name Policy type / Coverage type Aleksandra red constitution party ID [facility] [id number] 1 [place] Medicare [id number] TREATMENT PLAN Date Name Complete Echo
--- OUTSIDE RECORDS SUMMARY | 2025-01-06 12:10 | XMS_ITS | Clinical Summary ---
Author Organization [facility] Address [address] [facility] [place] [address] Care Team Providers Care Cable Television Technician Name Role Phone Michael Hanna MD Primary Care Provider [phone] Source Comments [facility],non-owned Affiliates and Associated Physician Practices is amultiple site organization consisting of ambulatory clinics and hospital sitesin [place], [place], [place] and [place]. This disclosure is being madepursuant to the Care Everywhere program and may not contain all information available regarding this patient. Last updated 18.[facility] Allergies No known active allergies Immunizations Immunization [...] age to complete this topic Insurance MEDICARE [facility] MEDIC[facility] Care Teams Cable Television Technician Relationship Specialty Start Date End Date Michael Hanna MD [address] [place] [address] [address] [place] [address] PCP - General Internal Medicine 05/22/17
[2025-01-06 12:25] LABS: Basophils Absolute Auto 0.1 K/mm3 (0.0-0.1); Basophils Percent Auto 0.9 % (0.2-1.2); Eosinophils Absolute Auto 0.1 K/mm3 (0-0.3); Eosinophils Percent Auto 1.2 % (0-4.4); Hematocrit 34.6 % (42.0-52.0); Hemoglobin 11.3 g/dL (14.0-18.0); Immature Granulocyte Absolute 0.01 K/mm3 (0.00-0.031); Immature Granulocyte Percent A 0.2 % (0-0.5); Lymphocytes Absolute Auto 0.71 K/mm3 (0.9-3.2); Lymphocytes Percent Auto 11.1 % (18.3-44.2); Mean Corpuscular HGB Conc 32.7 g/dl (32-36); Mean Corpuscular Hemoglobin 32.1 pg (26-34); Mean Corpuscular Volume 98.3 fl (80-100); Mean Platelet Volume 10.4 fl (7.4-10.4); Monocytes Absolute Auto 0.7 K/mm3 (0.1-0.6); Monocytes Percent Auto 10.3 % (2.6-8.5); Neutrophils Absolute Auto 4.9 K/mm3 (1.3-6.7); Neutrophils Percent Auto 76.3 % (45.5-73.1); Platelet Count Result 186 k/mm3 (150-375); Red Blood Count 3.52 M/mm3 (4.6-6.20); Red Cell Distribution Width 13.7 % (11.5-14.5); White Blood Count 6.4 K/mm3 (4.5-10.0)
[2025-01-06 12:34] LABS: Anion Gap 8 mmol/L (4-12); Blood Urea Nitrogen 13 mg/dL (9-20); Calcium 8.6 mg/dL (8.4-10.2); Carbon Dioxide 24 mmol/L (22-30); Chloride 105 mmol/L (98-107); Estimated CRCL calculation 33 ml/min; Estimated Glomerular Filt Rate 54; Glucose 95 mg/dL (65-110); Potassium 4.2 mmol/L (3.4-5.0); Sodium 137 mmol/L (137-145)
[2025-01-06 12:52] LABS: Appearance Urine Turbid (Clear); Color Urine Red (Yellow); Protein Urine 4+ mg/dL (Negative)
[2025-01-06 12:53] LABS: Blood Urine 4+ (Negative); Ketones Urine Negative (Negative); Nitrate Urine Negative (Negative)
--- NOTE | 2025-01-06 12:53 | ED.MALEGU ---
HPI - Male Genitourinary General Chief complaint: Urogenital-Male Stated complaint: hematuria Time Seen by Provider: 01/06/25 12:01 Source: patient and old records reviewed Mode of arrival: ambulatory Limitations: no limitations History of Present Illness HPI Narrative: Patient is an 84-year-old male who presents the ED with report of hematuria. Patient has history of a bladder mass with recent urinary retention s/p whelan catheter placement. He is scheduled to undergo surgery for the mass with Dr. Patrick with urology next Sunday. Patient went to go have his outpatient preop testing performed today, but told the nurse that he was having worsening hematuria. States his catheter has been draining dark red urine over the past few days. Reports intermittent blood clots. Denies significant abdominal or back pain, nausea, vomiting, fevers. Denies dizziness or lightheadedness, but does admit to feeling fatigued recently. He is not on any anticoagulation. Related Data Home Medications ?Medication ?Instructions ?Recorded ?Confirmed ?Last Taken ?Type albuterol sulfate 90 mcg/actuation 1 puff inhalation Q6-8H sob 01/05/25 01/05/25 Unknown History aerosol inhaler aspirin 81 mg chewable tablet 1 tablet PO DAILY 01/05/25 01/05/25 Unknown History (Aspirin Childrens) budesonide 160 mcg-glycopyr 9 2 inh inhalation QAM AND QPM 01/05/25 01/05/25 Unknown History mcg-formot 4.8 mcg/actuation HFA inhaler (Breztri Aerosphere) levothyroxine 125 mcg tablet 125 mcg PO DAILY 01/05/25 01/05/25 Unknown History Allergies Allergy/AdvReac Type Severity Reaction Status Date / Time No Known Allergies Allergy Verified 01/06/25 11:25 Review of Systems Review of Systems: All systems reviewed & are unremarkable except as noted in HPI. All systems reviewed & are unremarkable except as noted in HPI and below PMFSH Past Medical History Medical History Bladder mass Social History Social History Smoking packs per day: 1 Smoking cigarettes per day: 20.0 Years smoked: 68 Smoking pack-years: 68.00 Smoking status: Former smoker Smoking end date: 08/20/17 Alcohol intake: current Drinks per week: 4 Alcohol use details: 16 per month Substance use: never Living arrangements: alone Spiritual care concerns: No Exam Narrative: GENERAL: Eldelry but well appearing, well-nourished, non-toxic, in no acute distress. HEAD: Normocephalic, atraumatic. RESPIRATORY: Airway patent, respirations nonlabored. Clear to auscultation bilaterally, no rales, rhonchi, wheezing. CARDIOVASCULAR: Regular rate and rhythm without murmurs, rubs, or gallops. ABDOMINAL: Soft, nontender, nondistended. Normoactive BS. Whelan catheter draining dark red urine in bag, no clots present. MUSCULOSKELETAL: Moves all extremities. No gross deformities. SKIN: Warm, dry, normal color. NEURO: A&O X3. Speech clear. PSYCHIATRIC: Appropriate mood and affect. Normal interaction. Course Vital Signs Vital signs: Vital Signs Temperature 97.9 F 01/06/25 11:27 Pulse Rate 104 H 01/06/25 11:27 Respiratory Rate 18 01/06/25 11:27 Blood Pressure 126/63 01/06/25 11:27 Pulse Oximetry 97 01/06/25 11:27 Oxygen Delivery Room Air 01/06/25 11:27 Temperature 97.9 F 01/06/25 11:27 Pulse Rate 95 01/06/25 11:46 Respiratory Rate 18 01/06/25 11:46 Blood Pressure 115/60 01/06/25 11:46 Pulse Oximetry 97 01/06/25 11:46 Oxygen Delivery Room Air 01/06/25 11:27 MDM - Male Genitourinary MDM Narrative Medical decision making narrative: Patient presented to ED with persistent hematuria. Known bladder mass, scheduled to undergo surgery for this next week with Dr. Patrick. Patient is not on any anticoagulation. Vital signs are stable upon arrival. Cbc without leukocytosis. Hemoglobin 11.3. This does appear to be slightly down trending from labs performed last week. Kidney function is stable. Urinalysis with proteinuria, greater than 100 RBC, no significant signs of infection. Patient overall hemodynamically stable. Denying signs or symptoms of acute anemia. Catheter continues to drain appropriately. Patient denying pain. Will discuss with urology. Discussed case with Dr. Katsikas, urology, advised to flush catheter and ensure no significant clots, drink plenty of fluids, obtain coags to complete pre-op w/u, otherwise will see for surgery next week. Discussed these recommendations with patient. He is in agreement this plan. Feels comfortable with discharge home. Discussed strict return precautions. Patient voiced understanding. Discharged in stable condition. Medical Records Attestation: I reviewed the patient's medical records. Lab Data Attestation: I reviewed the patient's lab results. 01/06/25 12:18 01/06/25 12:18 Labs: Lab Results 01/06/25 Range/Units 12:18 WBC 6.4 (4.5-10.0) K/mm3 RBC 3.52 L (4.6-6.20) M/mm3 Hgb 11.3 L (14.0-18.0) g/dL Hct 34.6 L (42.0-52.0) % MCV 98.3 (80-100) fl MCH 32.1 (26-34) pg MCHC 32.7 (32-36) g/dl RDW 13.7 (11.5-14.5) % Plt Count 186 (150-375) k/mm3 MPV 10.4 (7.4-10.4) fl Immature Gran % (Auto) 0.2 (0-0.5) % Neut % (Auto) 76.3 H (45.5-73.1) % Lymph % (Auto) 11.1 L (18.3-44.2) % [place] % (Auto) 10.3 H (2.6-8.5) % Eos % (Auto) 1.2 (0-4.4) % Baso % (Auto) 0.9 (0.2-1.2) % Lymph # (Auto) 0.71 L (0.9-3.2) K/mm3 [place] # (Auto) 0.7 H (0.1-0.6) K/mm3 Eos # (Auto) 0.1 (0-0.3) K/mm3 Baso # (Auto) 0.1 (0.0-0.1) K/mm3 Abs Immat Gran (auto) 0.01 (0.00-0.031) K/mm3 Absolute Neuts (auto) 4.9 (1.3-6.7) K/mm3 Absolute Nucleated RBC 0.000 (0.0-0.012) K/mm3 Nucleated RBC % 0.0 (0.0-0.2) % PT Pending INR Pending APTT Pending Sodium 137 (137-145) mmol/L Potassium 4.2 (3.4-5.0) mmol/L Chloride 105 (98-107) mmol/L Carbon Dioxide 24 (22-30) mmol/L Anion Gap 8 (4-12) mmol/L BUN 13 D (9-20) mg/dL Creatinine 1.26 (0.7-1.3) mg/dL Estim Creat Clear Calc 33 ml/min Estimated GFR 54 L (59 - ) Glucose 95 (65-110) mg/dL Calcium 8.6 (8.4-10.2) mg/dL Urine Color Red H (Yellow) Urine Appearance Turbid H (Clear) Urine pH 6.0 (5.0-9.0) Ur Specific [place] 1.030 (1.001-1.035) Urine Protein 4+ H (Negative) mg/dL Urine Glucose (UA) Negative (Negative) mg/dL Urine Ketones Negative (Negative) mg/dL Ur Blood (Man) 4+ H (Negative) Urine Nitrate Negative (Negative) Urine Bilirubin Negative (Negative) Urine Urobilinogen 0.2 (<2.0) mg/dL Leukocyte Esterase Rfl Trace H (Negative) LEXIE/UL Urine RBC >100 H (0-2) /hpf Urine WBC Rare (0-3) /hpf Discharge Plan Discharge Clinical Impression: Gross hematuria, Bladder mass Patient Disposition: Home Condition: Stable Instructions: Antibiotic Form, Whelan Catheter Placement and Care (ED), Hematuria (ED) Additional Instructions: Continue to follow-up with the Urology team for your surgery next week. Dr. Patrick was made aware of your ED visit. Stay very well hydrated. Monitor symptoms at home. Return to the ED for worsening or severe bleeding, significant clots in your Whelan catheter bag, Whelan catheter not draining, abdominal and back pain, fevers, unable to keep down food or drink, or any other symptoms of concern. Patient Language: Azerbaijani Prescriptions: No Action sulfamethoxazole-trimethoprim [Bactrim DS] 800-160 mg tablet 1 tablet PO Q12H Qty: 10 0RF levothyroxine 125 mcg tablet 125 mcg PO DAILY albuterol sulfate 90 mcg/actuation HFA aerosol inhaler 1 puff INHALATION Q6-8H Breztri Aerosphere 160-9-4.8 mcg/actuation HFA aerosol inhaler 2 inh inhalation QAM AND QPM aspirin [Aspirin Childrens] 81 mg tablet,chewable 1 tablet PO DAILY Patient Comments: HOLD FOR 7 DAY PRIOR Follow-up/Referrals: Hanna,Michael Mendes MD [Primary Care Provider] - Jayant Patrick MD [Physician] - (UROLOGY) Time of Disposition: 13:23
[2025-01-06 12:54] LABS: Add Urine Microscopic? YES; Bilirubin Urine Negative (Negative); Leukocyte Esterase Ur Trace LEU/UL (Negative); RBC Urine >100 /hpf (0-2); Urobilinogen Urine 0.2 mg/dL (<2.0); WBC Urine Rare /hpf (0-3)
--- NOTE | 2025-01-06 12:54 | ECG_ITS ---
Test Date: 2025-01-06 13:38:50 Measurements Intervals [place] Rate: 89 P: 81 WI: 169 QRS: -13 QRSD: 100 T: 80 QT: 342 QTc: 416 Interpretive Statements SINUS RHYTHM POSSIBLE LEFT ATRIAL ENLARGEMENT [-0.1mV P-WAVE IN V1/V2] SEPTAL MYOCARDIAL INFARCTION , OF INDETERMINATE AGE [40+ ms Q WAVE IN V1/V2] No previous ECG available for comparison Electronically Signed On 01-06-2025 13:45:45 CDT by Patsy Stratton M.D.
[2025-01-06 12:57] LABS: Glucose Urine UA Negative (Negative)
[2025-01-06 13:43] LABS: Partial Thromboplastin Time 23.1 Seconds (22.3-36.8); Prothrombin Time 13.5 Seconds (11.1-14.7)
[2025-01-06 13:46] VITALS: BP 149/65; O2SAT 94
[2025-01-06] MEDS: WATER FOR IRRIGATION, STERILE 500 ML BOTTLE IRRIGATION (13:50)
[2025-01-06 13:59] VITALS: PULSE 92; RESP 17
--- NOTE | 2025-01-06 13:59 | PC.NURSE ---
catheter irrigated with sterile water and flows well without resistance or clots.
== END 2025-01-06 13:55 | disposition home or self-care (01) ==
PROVIDERS: Emergency Provider Physician Assistant; PCP Internal Medicine
DX: R31.0 Gross hematuria (principal); N32.9 Bladder disorder, unspecified; Z87.891 Personal history of nicotine dependence; R94.31 Abnormal electrocardiogram [ECG] [EKG]
CPT/HCPCS: 36415; 80048; 81001; 85025; 85610; 85730; 93005; 99283

== ENCOUNTER 2025-01-10 08:45 | Emergency (ER) | payer MEDICARE, BC, SELFPAY ==
--- OUTSIDE RECORDS SUMMARY | 2025-01-10 08:48 | XMS_ITS | Clinical Summary ---
Author Organization [facility] Address [address] [place] [address] Care Team Providers Care Aws Architect Name Role Phone Michael Hanna MD Primary Care Provider [phone] Source Comments [facility],non-owned Affiliates and Associated Physician Practices is amultiple site organization consisting of ambulatory clinics and hospital sitesin [place], [place], [place] and [place]. This disclosure is being madepursuant to the Care Everywhere program and may not contain all information available regarding this patient. Last updated 18.[facility] Allergies No known active allergies Immunizations Immunization [...] to complete this topic Insurance MEDICARE [facility] MEDICARE Care Teams Aws Architect Relationship Specialty Start Date End Date Michael Hanna MD [address] [place] [address] [address] [place] [address] PCP - General Internal Medicine 05/22/17
--- OUTSIDE RECORDS SUMMARY | 2025-01-10 08:48 | XMS_ITS | Continuity of Care Document ---
Author Organization [facility] Address [address] [place] [address] Phone Care Team Providers Care Outpatient Coder Name Role Phone Duke Tipton Unavailable Unavailable Procedures Procedure Date Office/outpatient Visit, [facility] Advance Directives Directive Yes / No Effective Date File Name No Information Encounters Encounter Description Practice Location Reason(s) For Visit Diagnoses Date Provider Providers Copied on Encounter Office/outpat ient Visit, [facility], [address], [place], [place], [address], [place] tel:[phone] SEC [facility] No Information [address] [facility] , [address], [place], [address], [place]. tel:[phone] Family History Family Member Type Diagnosis Age [...]
--- OUTSIDE RECORDS SUMMARY | 2025-01-10 08:48 | XMS_ITS | CONTINUITY OF CARE DOCUMENT ---
Author Name amna woo Address Unknown Organization [facility] Address [address] [place] [address] Phone [phone] Care Team Providers Care Force Dispatcher Name Role Phone Justin ELIZABETH, Keyona Unavailable PETER ELIZABETH, AMAYA Unavailable PETER ELIZABETH, AMAYA Unavailable PROBLEMS Condition Status Date Provider Notes Syncope active Sylwia Ibarra Hyperlipidemia active Sylwia Ibarra Hypertension active Sylwia Ibarra Chronic obstructive pulmonary disease, severe active 2 Sylwia Ibarra Cardiac murmur active Sylwia Ibarra INSURANCE PROVIDERS Payer name Policy type / Coverage type Aleksandra red constitution party ID [facility] [id number] 1 [place] MED[place] Medicare [id number] TREATMENT PLAN Date Name Complete Echo
[2025-01-10 09:07] VITALS: BP 118/44; PULSE 75; RESP 16; TEMP 36.6; O2SAT 99
--- NOTE | 2025-01-10 09:24 | PC.NURSE ---
new Statlock applied to right upper tight
--- NOTE | 2025-01-10 09:58 | ED.GENADULT ---
HPI - General Adult General Chief complaint: Urogenital-Male Stated complaint: catheter problems Time Seen by Provider: 01/10/25 09:33 History of Present Illness HPI narrative: 84-year-old male present to the emergency department for evaluation for a Mahoney catheter issue. Patient states that the stabilizer came off of his leg and Mahoney catheter was free hanging. Patient does have a Mahoney catheter in place due to having a bladder mass. Patient is scheduled to have surgery on Sunday by Dr. Patrick. Related Data Home Medications ?Medication ?Instructions ?Recorded ?Confirmed ?Last Taken ?Type albuterol sulfate 90 mcg/actuation 1 puff inhalation Q6-8H sob 01/05/25 01/05/25 Unknown History aerosol inhaler aspirin 81 mg chewable tablet 1 tablet PO DAILY 01/05/25 01/05/25 Unknown History (Aspirin Childrens) budesonide 160 mcg-glycopyr 9 2 inh inhalation QAM AND QPM 01/05/25 01/05/25 Unknown History mcg-formot 4.8 mcg/actuation HFA inhaler (Breztri Aerosphere) levothyroxine 125 mcg tablet 125 mcg PO DAILY 01/05/25 01/05/25 Unknown History Allergies Allergy/AdvReac Type Severity Reaction Status Date / Time No Known Allergies Allergy Verified 01/10/25 09:23 Review of Systems Review of Systems: All systems reviewed & are unremarkable except as noted in HPI and below PMFSH Past Medical History Medical History Bladder mass Social History Social History Smoking packs per day: 1 Smoking cigarettes per day: 20.0 Years smoked: 68 Smoking pack-years: 68.00 Smoking status: Former smoker Smoking end date: 08/20/17 Alcohol intake: current Drinks per week: 4 Alcohol use details: 16 per month Substance use: never Living arrangements: alone Spiritual care concerns: No Exam Narrative: APPEARANCE: Well appearing, no pain, no distress, well-nourished. HEAD: normocephalic, atraumatic. EYES: PERRLA/EOMI, conjunctivae clear. NOSE: Normal no drainage EARS:TMS clear with good light reflex. THROAT: Pharynx clear, no exudate. NECK: Supple. No adenopathy, no masses. RESPIRATORY: Airway patent, respirations nonlabored. Clear to auscultation bilaterally, no rales, rhonchi, wheezing. CARDIOVASCULAR: Regular rate and rhythm without murmurs rubs or gallops. ABDOMINAL: Soft, nontender, nondistended, normal bowel sounds MUSCULOSKELETAL: Moves all extremities. Strength/ROM intact, No edema, No calf tenderness. NEURO: Alert. Cranial nerves II through XII intact. Good gait. Good coordination SKIN: Warm, dry. Normal Color Course Vital Signs Vital signs: Vital Signs Temperature 97.8 F 01/10/25 09:07 Pulse Rate 75 01/10/25 09:07 Respiratory Rate 16 01/10/25 09:07 Blood Pressure 118/44 L 01/10/25 09:07 Pulse Oximetry 99 01/10/25 09:07 Oxygen Delivery Room Air 01/10/25 09:07 Temperature 97.8 F 01/10/25 09:07 Pulse Rate 75 01/10/25 09:07 Respiratory Rate 16 01/10/25 09:07 Blood Pressure 118/44 L 01/10/25 09:07 Pulse Oximetry 99 01/10/25 09:07 Oxygen Delivery Room Air 01/10/25 09:07 Medical Decision Making MDM Narrative Medical decision making narrative: 84-year-old male presents emergency department for evaluation for having the Mahoney catheter stabilizer falling off. Patient denies any current pain or injury. Patient does have hematuria but is states he has had hematuria for the last few weeks. Patient was encouraged to continue have close follow-up with Urology as scheduled. All questions concerns were addressed. Differential Diagnosis Differential Diagnosis: Mahoney catheter issue, Mahoney obstruction, UTI, urethral injury Vital Signs Vital Signs: Vital Signs Temperature 97.8 F 01/10/25 09:07 Pulse Rate 75 01/10/25 09:07 Respiratory Rate 16 01/10/25 09:07 Blood Pressure 118/44 L 01/10/25 09:07 Pulse Oximetry 99 01/10/25 09:07 Oxygen Delivery Room Air 01/10/25 09:07 Temperature 97.8 F 01/10/25 09:07 Pulse Rate 75 01/10/25 09:07 Respiratory Rate 16 01/10/25 09:07 Blood Pressure 118/44 L 01/10/25 09:07 Pulse Oximetry 99 01/10/25 09:07 Oxygen Delivery Room Air 01/10/25 09:07 Discharge Plan Discharge Clinical Impression: Complication of Mahoney catheter Patient Disposition: Home Condition: Stable Instructions: Antibiotic Form, Mahoney Catheter Placement and Care (ED) Additional Instructions: Mahoney catheter care as directed. Follow-up with Urology as scheduled. Patient Language: Bulgarian Prescriptions: No Action sulfamethoxazole-trimethoprim [Bactrim DS] 800-160 mg tablet 1 tablet PO Q12H Qty: 10 0RF levothyroxine 125 mcg tablet 125 mcg PO DAILY albuterol sulfate 90 mcg/actuation HFA aerosol inhaler 1 puff INHALATION Q6-8H Breztri Aerosphere 160-9-4.8 mcg/actuation HFA aerosol inhaler 2 inh inhalation QAM AND QPM aspirin [Aspirin Childrens] 81 mg tablet,chewable 1 tablet PO DAILY Patient Comments: HOLD FOR 7 DAY PRIOR Follow-up/Referrals: Jacques,Michael Mendes MD [Primary Care Provider] -
--- OUTSIDE RECORDS SUMMARY | 2025-01-10 10:09 | XMS_ITS | Continuity of Care Document ---
Author Organization [facility] Address [address] [place] [address] Phone Care Team Providers Care Chemical Lab Technician Name Role Phone Duke Tipton Unavailable Unavailable Procedures Procedure Date Office/outpatient Visit, [facility] Advance Directives Directive Yes / No Effective Date File Name No Information Encounters Encounter Description Practice Location Reason(s) For Visit Diagnoses Date Provider Providers Copied on Encounter Office/outpat ient Visit, [facility], [address], [place], [place], [address], [place] tel:[phone] SEC [facility] No Information [address] [facility] , [address], [place], [address], [place]. tel:[phone] Family History Family Member Type Diagnosis Age [...]
--- OUTSIDE RECORDS SUMMARY | 2025-01-10 10:09 | XMS_ITS | CONTINUITY OF CARE DOCUMENT ---
Author Name amna woo Address Unknown Organization [facility] Address [address] [place] [address] Phone [phone] Care Team Providers Care Early Intervention Specialist Name Role Phone Justin ELIZABETH, Keyona Unavailable PETER ELIZABETH, AMAYA Unavailable PETER ELIZABETH, AMAYA Unavailable PROBLEMS Condition Status Date Provider Notes Syncope active Sylwia Ibarra Hyperlipidemia active Sylwia Ibarra Hypertension active Sylwia Ibarar Chronic obstructive pulmonary disease, severe active 2 Sylwia Ibarra Cardiac murmur active Sylwia Ibarra INSURANCE PROVIDERS Payer name Policy type / Coverage type Aleksandra red libertarian ID [facility] [id number] 1 [place] Medicare [id number] TREATMENT PLAN Date Name Complete Echo
--- OUTSIDE RECORDS SUMMARY | 2025-01-10 10:09 | XMS_ITS | Clinical Summary ---
Author Organization [facility] Address [address] [place] [address] Care Team Providers Care Bottle House Cleaners Supervisor Name Role Phone Michael Hanna MD Primary Care Provider [phone] Source Comments [facility],non-owned Affiliates and Associated Physician Practices is amultiple site organization consisting of ambulatory clinics and hospital sitesin [place], [place], [place] and [place]. This disclosure is being madepursuant to the Care Everywhere program and may not contain all information available regarding this patient. Last updated 18.[facility] Allergies No known active allergies Immunizations Immunization [...] complete this topic Insurance MEDICARE [facility] MEDICARE Care Teams Bottle House Cleaners Supervisor Relationship Specialty Start Date End Date Michael Hanna MD [address] [place] [address] [address] [place] [address] PCP - General Internal Medicine 05/22/17
== END 2025-01-10 10:30 | disposition home or self-care (01) ==
LOC: ANHED 10:08
PROVIDERS: Emergency Provider Emergency Medicine; PCP Internal Medicine
DX: T83.098A Other mechanical complication of other urinary catheter, initial encounter (principal); Z79.82 Long term (current) use of aspirin; Z87.891 Personal history of nicotine dependence
CPT/HCPCS: 99281

== ENCOUNTER 2025-01-13 00:36 | Day surgery (SDC) | payer MEDICARE, BC, SELFPAY ==
[2025-01-05 14:22] VITALS: BMI 21.4
--- NOTE | 2025-01-05 14:38 | PC.NURSE ---
Report to the Outpatient Waiting Room, entrance under the green pavilion located off [facility], at time _0815am on date _01/13/25 . Planned Procedure Time: _10:15am. .? Time changes happen often and if your time is changed the preop area will call you the afternoon before. - You and your visitor will be asked to self-screen and do not enter if you have any COVID symptoms. Please call surgeon if you need to reschedule. - A mask is optional within the hospital at this time. Patients may have clear liquids (water, carbonated beverages, clear teas, apple juice) until 3 hours prior to surgery with a maximum of 20 ounces. - No food from midnight until time of surgery and no smoking, or chewing tobacco (or any form of nicotine). No chewing gum, candy or mints. (0715am) Take only the following medications with a SIP of water on the morning of surgery: ____Levothyroxine, Inhalers that am and prn DO NOT STOP ANY OF YOUR OTHER PRESCRIPTION MEDICATIONS PRIOR TO SURGERY EXCEPT THE FOLLOWING Hold all vitamins and supplements for 3 days per anesthesiologist.Date to take last dose 01/09/25 Medications to discontinue per physician No Aspirin-hold for [address] Patrick Date to take last dose___01/04/25 Please no make-up, nail telugu, hairspray, perfume, deodorant, or body powder the day of surgery.? No jewelry (including any body piercings) or valuables the day of surgery, leave them at home.? Please take a shower or bath the night before, or the morning of, surgery with an antibacterial soap.? Wear comfortable, loose fitting clothing.? - Jewelry must be removed prior to entering the operating room.? Rings and piercings that are not removed may be cut off. - The hospital will not accept responsibility for valuables.? - Please leave all valuables, including medications, at home the day of surgery. If you are going home after surgery, a licensed power screwdriver operator must drive you home.? - NO public transportation without another adult if you receive anesthesia. - We recommend that an adult stay with you for 24 hours following discharge. - We also recommend that you do not drive, make important decision, drink alcoholic beverages, or take any drugs that were not prescribed by your health care provider for at least 24 hours after your discharge time. Follow any additional instructions given to you from your surgeon. Telephone instructions given to ___Patient and asked if any additional questions and then verbalized understanding. Patient advised to call surgeon office or pre surgery nurse liaison [phone] if any additional questions.
[2025-01-13] VITALS (15 sets, daily range): BP systolic 129–167; BP diastolic 43–75; PULSE 73–114; RESP 16–27; TEMP 35.7–37.1; O2SAT 93–100
--- NOTE | ~2025-01-13 | XR_ITS ---
EXAMINATION: XR retrograde pyelo w/stent RT DATE: 01/13/2025 11:33 INDICATION: Right internal ureteral stent placement TECHNIQUE: Fluoroscopic images from a right internal ureteral stent placement are submitted for danilo montgomery 18 seconds of fluoroscopy time. FINDINGS: There is a right double-J internal ureteral stent projecting in expected position, with proximal [place] loop at the level of the renal pelvis and distal loop in the pelvis within the bladder lumen. IMPRESSION: 1. Right internal ureteral stent placement. Please refer to real-time procedural findings for detai ls. Reviewed, dictated and finalized at location A. IMPRESSION: 1. Right internal ureteral stent placement. Please refer to real-time procedu ral findings for details.
--- OUTSIDE RECORDS SUMMARY | 2025-01-13 00:39 | XMS_ITS | Continuity of Care Document ---
Author Organization [facility] Address [address] [place] [address] Phone Care Team Providers Care Window And Door Installer Name Role Phone Duke Tipton Unavailable Unavailable Procedures Procedure Date Office/outpatient Visit, [facility] Advance Directives Directive Yes / No Effective Date File Name No Information Encounters Encounter Description Practice Location Reason(s) For Visit Diagnoses Date Provider Providers Copied on Encounter Office/outpat ient Visit, [facility], [address], [place], [place], [id number], [place] tel:[phone] [address] [facility] No Information [address] [facility] , [address], [place], [address], [place]. tel:[phone] Family History Family Member Type Diagnosis Age At Onset No Information Payers Payer name Insurance type Covered constitution party ID Authoriza tion(s) No Information Social [...]
--- OUTSIDE RECORDS SUMMARY | 2025-01-13 00:39 | XMS_ITS | Clinical Summary ---
Author Organization [facility] Address [address] [facility] [place] [address] Care Team Providers Care Brake Operator Helper Name Role Phone Michael Hanna MD Primary Care Provider [phone] Source Comments [facility],non-owned Affiliates and Associated Physician Practices is amultiple site organization consisting of ambulatory clinics and hospital sitesin [place], [place], [place] and [place]. This disclosure is being madepursuant to the Care Everywhere program and may not contain all information available regarding this patient. Last updated 18.[facility] Allergies No known active allergies Immunizations Immunization [...] age to complete this topic Insurance MEDICARE [facility] MEDICARE Care Teams Brake Operator Helper Relationship Specialty Start Date End Date Michael Hanna MD [address] [place] [address] [address] [place] [address] PCP - General Internal Medicine 05/22/17
--- OUTSIDE RECORDS SUMMARY | 2025-01-13 00:39 | XMS_ITS | CONTINUITY OF CARE DOCUMENT ---
Author Name amna woo Address Unknown Organization [facility] Address [address] [place] [address] Phone [phone] Care Team Providers Care It Security Manager Name Role Phone Justin ELIZABETH, Keyona Unavailable [phone] PETER ELIZABETH, AMAYA Unavailable PETER ELIZABETH, AMAYA Unavailable PROBLEMS Condition Status Date Provider Notes Syncope active Sylwia Ibarra Hyperlipidemia active Sylwia Ibarra Hypertension active Sylwia Ibarra Chronic obstructive pulmonary disease, severe active 2 Sylwia Ibarra Cardiac murmur active Sylwia Ibarra INSURANCE PROVIDERS Payer name Policy type / Coverage type Aleksandra red democrat ID [facility] [id number] 1 [place] MEDICARE Medicare [id number] TREATMENT PLAN Date Name Complete Echo
--- NOTE | 2025-01-13 07:28 | WPDHPUPDATE1 ---
History and Physical Update Update Date/Time: 01/13/25 07:28 History and Physical has been reviewed, including an updated exam of the patient. There are NO changes in the patient's condition. Risks, benefits, and alternatives have been discussed and questions answered. Patient agrees to proceed with procedure. Proceed with turbt
--- NOTE | 2025-01-13 10:35 | P.PNAN_ITS ---
Anes - Initial Pre Proc Eval Procedure: Operation Date: 01/13/25 10:15 Proposed Procedures p Transurethral Resection Bladder Tumor - Jayant Patrick MD Date/Time: 01/13/25 10:35 Surgeon: Jayant Patrick MD Pre Op Diagnosis: gross hematuria Patient Data Age: 84 Gender: M Height: 1.7 m Weight: 59.6 kg Last Vital Signs Temp 97.3 F L 01/13/25 09:22 Pulse 85 01/13/25 09:22 Resp 16 01/13/25 09:22 BP 135/43 L 01/13/25 09:22 Pulse Ox 100 01/13/25 09:22 O2 Del Method Room Air 01/13/25 09:22 Allergies Allergy/AdvReac Type Severity Reaction Status Date / Time No Known Allergies Allergy Verified 01/13/25 09:21 Home Medications ?Medication ?Instructions ?Recorded ?Confirmed ?Type sulfamethoxazole 800 1 tablet PO Q12H #10 tabs 01/02/25 01/05/25 Rx mg-trimethoprim 160 mg tablet (Bactrim DS) albuterol sulfate 90 mcg/actuation 1 puff inhalation Q6-8H sob 01/05/25 01/05/25 History aerosol inhaler aspirin 81 mg chewable tablet 1 tablet PO DAILY 01/05/25 01/05/25 History (Aspirin Childrens) budesonide 160 mcg-glycopyr 9 2 inh inhalation QAM AND QPM 01/05/25 01/05/25 History mcg-formot 4.8 mcg/actuation HFA inhaler (Breztri Aerosphere) levothyroxine 125 mcg tablet 125 mcg PO DAILY 01/05/25 01/05/25 History Patient hx anesthesia problems: none Family hx anesthesia problems: none Results Review: All pre-operative results and documents have been reviewed as part of the pre- operative evaluation. [facility] Past Medical History Medical History Bladder mass Social History Social History Smoking packs per day: 1 Smoking cigarettes per day: 20.0 Years smoked: 68 Smoking pack-years: 68.00 Smoking status: Former smoker Smoking end date: 08/20/17 Alcohol intake: current Drinks per week: 4 Alcohol use details: 16 per month Substance use: never Living arrangements: alone Spiritual care concerns: No Anes - Eval Final PreProcedure Day of Procedure 01/13/25 10:35 Patient weight: normal Lungs: normal air movement Airway: Mallampati scale class II and special considerations (Upper teeth misaligned. ) Neurological: alert and oriented Last oral intake: >/= 8 hours ASA classification: III Emergent: no Anesthetic plan: proceed Anesthesia type and monitoring: general LMA and standard monitoring Results Review: All pre-operative results and documents have been reviewed as part of the pre- operative evaluation. Hypothyroidism, ex smoker, quit 2017, emphysema (COVID 10/2024). Informed Consent: The patient's anesthetic plan and its attendant risks and benefits were discussed with the patient/family/POA. Questions were solicited and answers provided to the satisfaction of the patient/family/POA.
[2025-01-13] MEDS: ceFAZolin 2 GM/D5W 50 ML 2 GM/50 ML BAG IVPB (10:46)
--- NOTE | 2025-01-13 11:17 | S_PTH ---
PATIENT: Sathya Perez LOC: [facility] U#:[id number] AGE/SX: 84/M ROOM: RE01/13/[address]: Jayant PatrickMD : 1940 BED: DIS: 01/14/2025 SPEC #: [id number] RECD: 01/13/25 11:49 STATUS: CHRISTIE REJonathan #: [id number] MAYKEL: 01/13/25 11:[address]: Darnell,Jayant Cassidy DEPT: [facility] Surgical RECD BY: Ede Espino ENTERED: 01/13/25 11:49 SP TYPE: Surgical OTHR DR: Michael HannaMD Tissues: A - Bladder Tumor B - Bladder Tumor Procedures: Hematoxylin and Eosin Stain Gross and Microscopic Level 4
[2025-01-13] MEDS: LACTATED RINGERS 1,000 ML 30 ML IV CONT (11:40)
--- NOTE | 2025-01-13 12:03 | W.PM.PROC2 ---
Procedure Note - Detailed Date of Procedure 01/13/25 Pre-op Diagnosis gross hematuria, bladder tumor large greater than 5 cm Post-op Diagnosis Same Procedure Performed Cystoscopy, transurethral resection of large bladder tumor greater than 5 cm, unroofing ureteral orifice, right retrograde, right ureteral stent placement, complex Mahoney catheter placement [address] Surgeon Jayant Patrick MD Anesthesia General Description of Procedure Patient was taken to the operative suite correctly identified. Once anesthesia was obtained he was placed in dorsal lithotomy position and prepped and draped usual sterile fashion. Twenty-four Ukrainian resectoscope sheath was inserted the bladder. Has a large tumor overlying the right ureteral orifice. I resected this down to the base and then sent the base separate specimen. In order to resect the tumor the ureteral orifice was resected as there appeared to be some tumor at that location. Hemostasis was achieved using electrocautery. Ureteral catheter was inserted into the right ureteral orifice and a pyelogram was performed. There were no filling defects noted. Sensor wire was inserted. 6 Ukrainian contour stent was then placed with the proximal end in renal pelvis and the distal in the bladder. Bladder was drained. Twenty [address] was placed with 10 cc in the balloon. Patient is taken recovery stable condition. The stent will remain in place for 6 weeks. Estimated Blood Loss 0 Drains Yes Packing No Pathology Yes Complications No immediate complications Condition Stable Disposition PACU
[2025-01-13] MEDS: fentaNYL CITRATE INJ (*CRX) 100 MCG/2 ML VIAL 25 MCG IV PUSH (12:10)
--- NOTE | 2025-01-13 13:14 | ADMGEN ---
This patient, Sathya Perez, was admitted to [facility] Surg Room 327-01. Patient/family oriented to hospital policies and general routines including ID bracelet, bed and alarms, visiting hours, pain management, procedures, bathroom and other care routines, personal items, smoking policy, room service/diet, and visiting hours. Information on how to activate the Rapid Response Team has been discussed. Patient/Family are encouraged to report perceived risks to care and to ask questions if they do not understand what they are told or what they should do.
[2025-01-13] MEDS: HYOSCYAMINE SULFATE 0.125 MG TABLET SUBLINGUAL (13:25)
[2025-01-13] MEDS: DEXTROSE 5%/LACTATED RINGERS 1,000 ML 125 ML IV CONT ×2 (13:26→21:32)
[2025-01-13] MEDS: MORPHINE SULFATE (*CRX) 2 MG/ML INJ IV PUSH (15:01)
[2025-01-13] MEDS: SOLIFENACIN 5 MG TABLET PO (16:21)
[2025-01-13] MEDS: DOCUSATE SODIUM 100 MG CAPSULE PO (16:21)
[2025-01-13] MEDS: ceFAZolin 1 GM/NS 50 ML 1 GM/50 ML BAG IVPB (17:23)
[2025-01-14 03:08] VITALS: BP 140/61; PULSE 74; RESP 18; TEMP 36.3; O2SAT 100
[2025-01-14] MEDS: ceFAZolin 1 GM/NS 50 ML 1 GM/50 ML BAG IVPB (03:57)
[2025-01-14] MEDS: DEXTROSE 5%/LACTATED RINGERS 1,000 ML 125 ML IV CONT (05:38)
[2025-01-14] MEDS: LEVOTHYROXINE SODIUM 125 MCG TABLET PO (05:38)
[2025-01-14 06:48] LABS: Hematocrit 36.4 % (42.0-52.0)
[2025-01-14 07:00] LABS: Anion Gap 4 mmol/L (4-12); Blood Urea Nitrogen 14 mg/dL (9-20); Carbon Dioxide 27 mmol/L (22-30); Chloride 105 mmol/L (98-107); Estimated CRCL calculation 36 ml/min; Estimated Glomerular Filt Rate > 60; Glucose 126 mg/dL (65-110); Potassium 4.9 mmol/L (3.4-5.0); Sodium 136 mmol/L (137-145)
[2025-01-14] MEDS: HYOSCYAMINE SULFATE 0.125 MG TABLET SUBLINGUAL (07:58)
[2025-01-14] MEDS: DOCUSATE SODIUM 100 MG CAPSULE PO ×2 (07:59→17:27)
[2025-01-14] MEDS: CEPHALEXIN 500 MG CAPSULE PO ×3 (07:59→17:27)
[2025-01-14 08:00] VITALS: O2SAT 97
[2025-01-14 10:34] VITALS: BP 125/57; PULSE 81; RESP 18; TEMP 36.7; O2SAT 97
[2025-01-14 14:34] VITALS: BP 130/64; PULSE 78; RESP 18; TEMP 37; O2SAT 97
--- NOTE | 2025-01-14 16:02 | PM.DS ---
DS: Admitting Diagnosis Discharge Date 01/14/2025 Admitting Diagnosis gross hematuria, bladder tumor large greater than 5 cm Procedure Performed Cystoscopy, transurethral resection of large bladder tumor greater than 5 cm, unroofing ureteral orifice, right retrograde, right ureteral stent placement, complex Whelan catheter placement [address] DS: Discharge Diagnosis Discharge Diagnosis Plan POD 1 -follow up in office sundayjanuary 16 or sundayjanuary 19 for VT and whelan removal. -ok to discharge. -monitor for gross hematuria/clots. call the office if any questions or concerns. DS: Summary Hospital Course Hospital Course: gross hematuria, bladder tumor large greater than 5 cm Procedure Performed Cystoscopy, transurethral resection of large bladder tumor greater than 5 cm, unroofing ureteral orifice, right retrograde, right ureteral stent placement, complex Whelan catheter placement [address] Status at Discharge Functional status at discharge: independent ambulation Overall status at discharge: patient is back to baseline Time Spent with Patient Time attestation: Total time spent providing and/or coordinating discharge services: Exam Const: General: comfortable and no acute distress HENMT: Mouth: Yes moist mucous membranes Eyes: General: appearance normal, both eyes and all related structures Neck: Neck: supple Resp: Effort & Inspection: normal respiratory effort Cardio: Rate: regular rate GI: GI Palp: Yes Soft to palpation : Male General Exam: Yes normal external exam Urinary Catheter: Urinary Catheter: patent and draining and urine pink Skin: General skin exam: normal color Psych: Mental Status: mental status grossly normal Affect: normal affect DS: Data Data Completed and Pending Completed studies during hospitalization: Pending at discharge 01/13/25 11:17 Surgical [PTH] Routine Surgical [PTH] Routine Labs on day of discharge: Labs from last 24 hours 01/14/25 06:38 Hgb 11.0 L Hct 36.4 L Sodium 136 L Potassium 4.9 Chloride 105 Carbon Dioxide 27 Anion Gap 4 BUN 14 Creatinine 1.11 Estim Creat Clear Calc 36 Estimated GFR > 60 Glucose 126 H Calcium 9.0 Discharge Plan Discharge Patient Disposition: Home Patient Language: Telugu Stand Alone Forms: General Discharge Instructions Follow-up/Referrals: Jayant Patrick MD [Physician] - (Call to make 6 week follow up.) Discharge Medications: New hyoscyamine sulfate [Anaspaz] 0.125 mg Tablet,Disintegrating 0.125 mg sublingual Q6H PRN (Reason: Bladder Spasm) Qty: 30 0RF docusate sodium 100 mg Capsule 100 mg PO BID Qty: 20 0RF Continued levothyroxine 125 mcg tablet 125 mcg PO DAILY albuterol sulfate 90 mcg/actuation HFA aerosol inhaler 1 puff INHALATION Q6-8H Breztri Aerosphere 160-9-4.8 mcg/actuation HFA aerosol inhaler 2 inh inhalation QAM AND QPM Changed sulfamethoxazole-trimethoprim [Bactrim DS] 800-160 mg tablet 1 tablet PO DAILY Qty: 6 0RF Held aspirin [Aspirin Childrens] 81 mg tablet,chewable 1 tablet PO DAILY Hold Instructions: Resume on 01/23/25. Patient Comments: HOLD FOR 7 DAY PRIOR Other Ambulatory Orders: Basic Metabolic Panel (Routine) Timeframe: 20250105 Location: Determined by Patient Ordered By: Jayant Patrick Complete Blood Count with Diff (Routine) Timeframe: 20250105 Location: Determined by Patient Ordered By: Jayant Patrick Urine Culture (Routine) Timeframe: 20250106 Location: Determined by Patient Ordered By: Jayant Patrick CA 12 lead EKG (Routine) Timeframe: 20250105 Location: Determined by Patient Ordered By: Jean-Paul Carpio Prothrombin Time INR (Routine) Timeframe: 20250105 Location: Determined by Patient Ordered By: Jayant Patrick Partial Thromboplastin Time (Routine) Timeframe: 20250105 Location: Determined by Patient Ordered By: Jayant Patrick
== END 2025-01-14 18:05 | disposition home or self-care (01) ==
LOC: ANHSURGERY 08:00 → ANH3MEDSUR 12:52
PROVIDERS: PCP Internal Medicine; Visit Provider Urology
PROC: 0TBB8ZZ Excision of Bladder, Via Natural or Artificial Opening Endoscopic (ICD-10-PCS; CPT 52240; principal; 2025-01-13 10:15)
DX: C67.6 Malignant neoplasm of ureteric orifice (principal); Z87.891 Personal history of nicotine dependence
CPT/HCPCS: 52240; 36415; 74420; 80048; 85014; 85018; 88305; A9270; C1758; C1769; C2617; J0690; J1100; J2003; J2270; J2405; J2704; J3010; J7120; J7121; Q9966